=== PATIENT | male | born 1950 | race Caucasian/White ===

== ENCOUNTER → 2017-11-12 13:28 | Outpatient (CLI) | payer OTHER, SELFPAY ==
--- NOTE | 2017-11-12 | DI.MRI.S_ITS ---
PROCEDURE: MR CERVICAL SPINE WO CON INDICATIONS: RADICULOPATHY AFFECTING UPPER RIGHT EXTREMITY TECHNIQUE: Noncontrast sagittal T1 spin echo and T2 fast spin echo, sagittal STIR, foraminal oblique sagittal T2 fast spin echo, and axial gradient echo or T2 fast spin echo through the cervical spine. COMPARISON: None. FINDINGS: Image quality: Excellent. Alignment and Curvature: There is normal bony alignment. Bone Marrow: Mild reactive endplate change is noted adjacent to the C3-C4, C4-C5, C5-C6, C6-C7 and C7-T1 discs. Spinal Cord: Visualized spinal cord has normal size and signal. No cerebellar tonsillar herniation. Paraspinous Soft Tissues: No paravertebral masses. Prevertebral soft tissues are normal in thickness. C2-C3: Loss of disc signal. Mild, diffuse disc bulge. No central stenosis. No neural foraminal narrowing. No neural impingement. C3-C4: Loss of disc signal and height. Mild, diffuse disc bulge. Mild bilateral facet hypertrophy. Mild narrowing of the central canal. Severe bilateral neural foraminal narrowing with flattening deformity of the exiting C4 nerve roots. C4-C5: Loss of disc signal and mild loss of disc height. Mild, diffuse disc bulge. Mild bilateral facet hypertrophy. No central stenosis. Mild bilateral uncovertebral joint hypertrophy. Severe bilateral neural foraminal narrowing with flattening deformity the exiting C5 nerve roots. C5-C6: Loss of disc signal and height. Moderate, diffuse disc bulge. [id number] narrowing of the central canal. Mild bilateral facet hypertrophy. Moderate bilateral uncovertebral joint hypertrophy. Severe bilateral neural foraminal narrowing with flattening deformity exiting C6 nerve roots. C6-C7: Loss of disc signal and height. Moderate, diffuse disc bulge. Mild narrowing of the central canal Mild bilateral facet hypertrophy. Mild right and moderate left uncovertebral joint hypertrophy. Severe bilateral neural foraminal narrowing with flattening deformity of the exiting C7 nerve root. Mild to moderate narrowing of the central canal. C7-T1: Loss of disc signal and height. Mild, diffuse disc bulge. Mild narrowing of the central canal. Moderate left facet hypertrophy. Severe left neural foraminal narrowing with flattening deformity exiting left C8 nerve root. IMPRESSION: 1. Multilevel degenerative disc disease. 2. Multilevel facet arthropathy and uncovertebral joint hypertrophy. 3. Mild to moderate C5-C6 central canal narrowing. Mild C3-C4, C6-C7 and C7-T1 central canal narrowing. 4. Severe bilateral C3-C4, C4-C5, C5-C6 and C6-C7 neural foraminal narrowing. Severe left C7-T1 neural foraminal narrowing. Dictated by: Kelly Trammell MD, PhD on 11/12/2017 at 17:43 Approved by: Kelly Trammell MD, PhD on 11/12/2017 at 17:49
== END ==
PROVIDERS: PCP Family Medicine; Visit Provider Orthopaedic Surgery
DX: M50.11 Cervical disc disorder with radiculopathy, high cervical region (principal); M47.22 Other spondylosis with radiculopathy, cervical region; M48.02 Spinal stenosis, cervical region
CPT/HCPCS: 72141

== ENCOUNTER 2020-06-29 20:26 | Observation (INO) | payer MEDICARE, SELFPAY ==
[2020-06-29] VITALS (10 sets, daily range): BP systolic 107–148; BP diastolic 63–82; PULSE 67–78; RESP 14–25; TEMP 36.3–37.1; O2SAT 93–99; BMI 27.4
--- NOTE | 2020-06-29 20:33 | DI.CT.S_ITS ---
PROCEDURE: CT HEAD/BRAIN WO CON INDICATIONS: resolved dbl vision, ataxia and slurred speech on/off x darling TECHNIQUE: Noncontrast 4.5 mm thick angled axial sections acquired from the foramen magnum to the vertex, with coronal and sagittal reformats. For radiation dose reduction, the following was used: automated exposure control, adjustment of mA and/or kV according to patient size. COMPARISON: None. FINDINGS: Image quality: Excellent. CSF spaces: Basal cisterns are patent. No extra-axial fluid collections. The ventricles are symmetric in size and shape. Brain: No intracranial bleeds or masses. There is cerebral volume loss for age, with resultant ventricular and sulcal prominence. There are periventricular and deep white matter chronic small vessel ischemic changes. There is intracranial internal carotid artery atherosclerosis. Skull and face: Calvarium and visualized facial bones appear intact, without suspicious lesions. Sinuses: Visualized sinuses demonstrate minimal scattered mucosal thickening predominantly in the ethmoid air cells. IMPRESSION: 1. No acute intracranial process. 2. Moderate atrophy and chronic microvascular ischemic changes. Dictated by: Maci Nichols M.D. on 06/29/2020 at 20:57 Approved by: Maci Nichols M.D. on 06/29/2020 at 20:57
[2020-06-29 20:46] LABS: Add Manual Diff / Slide Review NO; Basophils Absolute Auto 100 /uL (0-100); Eosinophils Absolute Auto 300 /uL (0-450); Eosinophils Percent Auto 3.3 % (2-4); Hematocrit 40.8 % (41-53); Hemoglobin 13.6 g/dL (13.5-17.5); Lymphocytes Absolute Auto 3200 /uL (1100-4500); Lymphocytes Percent Auto 41.7 % (25-40); Mean Corpuscular HGB Conc 33.3 % (30-36); Mean Corpuscular Volume 96.4 fL (80-100); Monocytes Absolute Auto 700 /uL (0-900); Monocytes Percent Auto 9.7 % (3-14); Neutrophils Absolute Auto 3400 /uL (1500-7000); Neutrophils Percent Auto 44.3 % (50-75); Platelet Count 193 X10^3/uL (150-400); Red Blood Cell Count 4.23 X10^6/uL (4.5-5.9); Red Cell Distribution Width 13.8 % (11.6-14.8); White Blood Cell Count 7.6 X10^3/uL (4.5-11.0)
[2020-06-29 20:56] LABS: INR 0.9 (0.9-1.3); Prothrombin Time 10.5 SECONDS (10.1-12.7)
[2020-06-29 20:58] LABS: PTT Partial Thromboplastin Tim 28 SECONDS (26.4-36.2)
[2020-06-29 21:04] LABS: Ethanol (ETOH) 257 mg/dL
[2020-06-29 21:05] LABS: Alanine Aminotransferase 64 IU/L (<50); Albumin 4.4 g/dL (3.5-5.0); Albumin Globulin Ratio 1.4 (1.0-2.8); Alkaline Phosphatase 62 U/L (38-126); Aspartate Aminotransferase 80 IU/L (17-59); BUN Creatinine Ratio 23.2 (6-22); Bilirubin Total 0.3 mg/dL (0.2-1.3); Blood Urea Nitrogen 22 mg/dL (9-20); Calcium 8.9 mg/dL (8.4-10.2); Carbon Dioxide 28 mmol/L (22-32); Chloride 106 mmol/L (98-107); Creatine Kinase 135 U/L (55-170); Estimated Glomerular Filt Rate > 60.0 mL/min (>60); Globulin 3.1 g/dL (1.7-4.1); Glucose 139 mg/dL (80-110); HEMOLYSIS < 15 (0-50); Potassium 4.3 mmol/L (3.4-5.1); Sodium 142 mmol/L (137-145); Total Protein 7.5 g/dL (6.3-8.2)
[2020-06-29] MEDS: SODIUM CHLORIDE 0.9% 1,000 ML 150 ML IV (21:07)
[2020-06-29 21:17] LABS: Troponin I < 0.012 ng/mL (0.01-0.034)
[2020-06-29 21:20] LABS: CKMB % Relative Index 0.9 % (1.5-5.0); Creatine Kinase MB 1.18 ng/mL (<2.37)
[2020-06-29 21:37] LABS: Bacteria Urine None Seen; RBC Urine None Seen (0-5/HPF); WBC Urine None Seen (0-5/HPF)
--- NOTE | 2020-06-29 21:38 | ED.NEUROSD ---
HPI - Neuro Symptoms/Deficit General Chief Complaint: Neuro Symptoms/Deficit Stated Complaint: DOUBLE VISION SLURRED SPEECH Time Seen by Provider: 06/29/20 20:35 Source: patient and family Mode of arrival: Ambulatory Limitations: no limitations History of Present Illness HPI Narrative: 70-year-old gentleman with no significant medical history in no recent provider visits presents with approximately 40 minutes of double vision. This is not associated with headache or other neurologic findings. He states that over the last 1-2 months he has noticed increased slurred speech and some minor gait instability. He had attributed this to hearing and hearing loss. On Anticoagulants: No Related Data Allergies Allergy/AdvReac Type Severity Reaction Status Date / Time No Known Drug Allergies Allergy Verified 06/29/20 20:37 Review of Systems Review of Systems Narrative: Pertinent positive and negative findings as per HPI Remainder of review of systems is otherwise unremarkable for Constitutional: Fevers, chills, weakness ENT: No sore throat, neck pain, ear pain CV: Chest pain, palpitations, dyspnea on exertion Respiratory: Cough, wheeze, dyspnea GI: Nausea, vomiting, diarrhea, change in bowel habits, black or bloody stools : Dysuria, hematuria, flank pain MS: Muscle weakness, numbness, joint swelling or warmth Skin: Rashes, nonhealing lesions Hematologic/Lymphatic On Anticoagulants: No Patient History Social History Smoking Status: Never smoker Smoking Status: Never smoker alcohol intake frequency: 3 or more drinks per day Substance Use Type: does not use Exam Narrative Exam Narrative: General: Healthy appearing, in no acute distress. Smells of alcohol, slightly slurred speech HEENT: Moist mucous membranes, normal sclera with reactive pupils, Neck: No JVD, supple Respiratory: Lungs are clear to auscultation, no wheezing no rales no rhonchi. Full and symmetrical air movement Cardiac: Regular rate and rhythm no murmurs no bruits Abdomen: Soft, nontender, good bowel tones, no flank pain Skin: Warm and dry, no rashes Neurologic: Slurred speech and mild gait abnormality no visual changes and NIH score is 1 due to the slurred speech which is not acute Extremities: No trauma, well perfused Psych: Cooperative, appropriate insight and affect Initial Vital Signs Initial Vital Signs: Vital Signs Temperature 97.4 F L 06/29/20 20:35 Pulse Rate 78 06/29/20 20:35 Respiratory Rate 14 06/29/20 20:35 Blood Pressure 148/82 H 06/29/20 20:35 Pulse Oximetry 99 06/29/20 20:35 Course Orders Ordered: ED Orders 06/29/20 20:15 Magnesium Stat 06/29/20 20:33 CT head/brain wo con Stat 06/29/20 20:34 EKG-12 Lead Stat 06/29/20 20:40 Complete Blood Count AUTO DIFF Stat Comprehensive Metabolic Panel Stat Ethanol (ETOH) Stat Partial Thromboplastin Time Stat Prothrombin Time INR Stat Troponin & CK Cardiac Panel Stat 06/29/20 20:55 COVID19 - ADMIT (RN TRANSITION swab/PCR) Stat 06/29/20 21:36 Urinalysis and Microscopic Stat Urine Drug Screen, Rapid Stat Sodium Chloride (Normal Saline 0.9%) 1,000 mls @ 150 mls/hr IV CONT PAM Last Admin: 06/29/20 21:07 Dose: 150 mls/hr Documented by: ANA Vital Signs Vital signs: Vital Signs - 8 hr 06/29/20 20:35 06/29/20 20:40 06/29/20 20:52 Temperature 97.4 F L Pulse Rate 78 73 70 Respiratory Rate 14 22 22 Blood Pressure 148/82 H 128/79 Pulse Oximetry 99 95 94 06/29/20 21:00 06/29/20 21:30 06/29/20 22:00 Temperature Pulse Rate 75 74 76 Respiratory Rate 25 H 20 19 Blood Pressure 122/75 112/63 127/69 Pulse Oximetry 94 93 94 06/29/20 22:30 Temperature Pulse Rate 72 Respiratory Rate 19 Blood Pressure 107/63 Pulse Oximetry 93 MDM - Neuro Symptoms/Deficit Medical Records Attestation: I reviewed the patient's medical records. Lab Data Attestation: I reviewed the patient's lab results. Result diagrams: 06/29/20 20:40 06/29/20 20:40 Labs: Lab Results 06/29/20 06/29/20 06/29/20 Range/Units 20:15 20:40 20:40 WBC 7.6 (4.5-11.0) X10^3/uL RBC 4.23 L (4.5-5.9) X10^6/uL Hgb 13.6 (13.5-17.5) g/dL Hct 40.8 L (41-53) % MCV 96.4 (80-100) fL MCH 32.0 (26-34) PG MCHC 33.3 (30-36) % RDW 13.8 (11.6-14.8) % Plt Count 193 (150-400) X10^3/uL Neut % (Auto) 44.3 L (50-75) % Lymph % (Auto) 41.7 H (25-40) % [place] % (Auto) 9.7 (3-14) % Eos % (Auto) 3.3 (2-4) % Baso % (Auto) 1.0 (0-2) % Neut # (Auto) 3400 (8505-6422) /uL Lymph # (Auto) 3200 (8347-2858) /uL [place] # (Auto) 700 (0-900) /uL Eos # (Auto) 300 (0-450) /uL Baso # (Auto) 100 (0-100) /uL PT (10.1-12.7) SECONDS INR (0.9-1.3) APTT (26.4-36.2) SECONDS Sodium 142 (137-145) mmol/L Potassium 4.3 (3.4-5.1) mmol/L Chloride 106 (98-107) mmol/L Carbon Dioxide 28 (22-32) mmol/L BUN 22 H (9-20) mg/dL Creatinine 0.95 (0.66-1.25) mg/dL Estimated GFR > 60.0 (>60) mL/min BUN/Creatinine Ratio 23.2 H (6-22) Glucose 139 H (80-110) mg/dL Calcium 8.9 (8.4-10.2) mg/dL Magnesium 2.0 (1.6-2.3) mg/dL Total Bilirubin 0.3 (0.2-1.3) mg/dL AST 80 H (17-59) IU/L ALT 64 H (<50) IU/L Alkaline Phosphatase 62 (38-126) U/L Total Creatine Kinase 135 (55-170) U/L CK-MB (CK-2) 1.18 (<2.37) ng/mL CK-MB (CK-2) Rel Index 0.9 L (1.5-5.0) % Troponin I < 0.012 (0.01-0.034) ng/mL Total Protein 7.5 (6.3-8.2) g/dL Albumin 4.4 (3.5-5.0) g/dL Globulin 3.1 (1.7-4.1) g/dL Albumin/Globulin Ratio 1.4 (1.0-2.8) Urine Color Urine Appearance Urine pH (4.5-8.0) Ur Specific [place] (1.000-1.035) Urine Protein (Negative) Urine Glucose (UA) (Negative) g/dL Urine Ketones (NEGATIVE) Urine Occult Blood (Negative) Urine Nitrate (Negative) Urine Bilirubin (NEGATIVE) Urine Urobilinogen (0.2) E.U./dL Ur Leukocyte Esterase (NEGATIVE) Urine RBC (0-5/HPF) Urine WBC (0-5/HPF) Urine Bacteria (None) Ur Culture Indicated? Micro UA Comment U Opiates 300ng/mL cut (Negative) Ur Oxycodone Screen (Negative) Urine Methadone Screen (Negative) Ur Barbiturates Screen (Negative) U Tricyclic Antidepress (Negative) Ur Phencyclidine Scrn (Negative) Ur Amphetamines Screen (Negative) U Methamphetamines Scrn (Negative) Ur MDMA Scrn (Ecstasy) (Negative) U Benzodiazepines Scrn (Negative) Urine Cocaine Screen (Negative) U Marijuana (THC) Screen (Negative) Ethyl Alcohol ( - 10) mg/dL SARS-CoV-2 (PCR) (Negative) 06/29/20 06/29/20 06/29/20 Range/Units 20:40 20:40 20:55 WBC (4.5-11.0) X10^3/uL RBC (4.5-5.9) X10^6/uL Hgb (13.5-17.5) g/dL Hct (41-53) % MCV (80-100) fL MCH (26-34) PG MCHC (30-36) % RDW (11.6-14.8) % Plt Count (150-400) X10^3/uL Neut % (Auto) (50-75) % Lymph % (Auto) (25-40) % [place] % (Auto) (3-14) % Eos % (Auto) (2-4) % Baso % (Auto) (0-2) % Neut # (Auto) (0819-5933) /uL Lymph # (Auto) (2582-7076) /uL [place] # (Auto) (0-900) /uL Eos # (Auto) (0-450) /uL Baso # (Auto) (0-100) /uL PT 10.5 (10.1-12.7) SECONDS INR 0.9 (0.9-1.3) APTT 28 (26.4-36.2) SECONDS Sodium (137-145) mmol/L Potassium (3.4-5.1) mmol/L Chloride (98-107) mmol/L Carbon Dioxide (22-32) mmol/L BUN (9-20) mg/dL Creatinine (0.66-1.25) mg/dL Estimated GFR (>60) mL/min BUN/Creatinine Ratio (6-22) Glucose (80-110) mg/dL Calcium (8.4-10.2) mg/dL Magnesium (1.6-2.3) mg/dL Total Bilirubin (0.2-1.3) mg/dL AST (17-59) IU/L ALT (<50) IU/L Alkaline Phosphatase (38-126) U/L Total Creatine Kinase (55-170) U/L CK-MB (CK-2) (<2.37) ng/mL CK-MB (CK-2) Rel Index (1.5-5.0) % Troponin I (0.01-0.034) ng/mL Total Protein (6.3-8.2) g/dL Albumin (3.5-5.0) g/dL Globulin (1.7-4.1) g/dL Albumin/Globulin Ratio (1.0-2.8) Urine Color Urine Appearance Urine pH (4.5-8.0) Ur Specific [place] (1.000-1.035) Urine Protein (Negative) Urine Glucose (UA) (Negative) g/dL Urine Ketones (NEGATIVE) Urine Occult Blood (Negative) Urine Nitrate (Negative) Urine Bilirubin (NEGATIVE) Urine Urobilinogen (0.2) E.U./dL Ur Leukocyte Esterase (NEGATIVE) Urine RBC (0-5/HPF) Urine WBC (0-5/HPF) Urine Bacteria (None) Ur Culture Indicated? Micro UA Comment U Opiates 300ng/mL cut (Negative) Ur Oxycodone Screen (Negative) Urine Methadone Screen (Negative) Ur Barbiturates Screen (Negative) U Tricyclic Antidepress (Negative) Ur Phencyclidine Scrn (Negative) Ur Amphetamines Screen (Negative) U Methamphetamines Scrn (Negative) Ur MDMA Scrn (Ecstasy) (Negative) U Benzodiazepines Scrn (Negative) Urine Cocaine Screen (Negative) U Marijuana (THC) Screen (Negative) Ethyl Alcohol 257 H ( - 10) mg/dL SARS-CoV-2 (PCR) Negative (Negative) 06/29/20 06/29/20 Range/Units 21:36 21:36 WBC (4.5-11.0) X10^3/uL RBC (4.5-5.9) X10^6/uL Hgb (13.5-17.5) g/dL Hct (41-53) % MCV (80-100) fL MCH (26-34) PG MCHC (30-36) % RDW (11.6-14.8) % Plt Count (150-400) X10^3/uL Neut % (Auto) (50-75) % Lymph % (Auto) (25-40) % [place] % (Auto) (3-14) % Eos % (Auto) (2-4) % Baso % (Auto) (0-2) % Neut # (Auto) (2766-5954) /uL Lymph # (Auto) (4597-5982) /uL [place] # (Auto) (0-900) /uL Eos # (Auto) (0-450) /uL Baso # (Auto) (0-100) /uL PT (10.1-12.7) SECONDS INR (0.9-1.3) APTT (26.4-36.2) SECONDS Sodium (137-145) mmol/L Potassium (3.4-5.1) mmol/L Chloride (98-107) mmol/L Carbon Dioxide (22-32) mmol/L BUN (9-20) mg/dL Creatinine (0.66-1.25) mg/dL Estimated GFR (>60) mL/min BUN/Creatinine Ratio (6-22) Glucose (80-110) mg/dL Calcium (8.4-10.2) mg/dL Magnesium (1.6-2.3) mg/dL Total Bilirubin (0.2-1.3) mg/dL AST (17-59) IU/L ALT (<50) IU/L Alkaline Phosphatase (38-126) U/L Total Creatine Kinase (55-170) U/L CK-MB (CK-2) (<2.37) ng/mL CK-MB (CK-2) Rel Index (1.5-5.0) % Troponin I (0.01-0.034) ng/mL Total Protein (6.3-8.2) g/dL Albumin (3.5-5.0) g/dL Globulin (1.7-4.1) g/dL Albumin/Globulin Ratio (1.0-2.8) Urine Color Yellow Urine Appearance Clear Urine pH 6.0 (4.5-8.0) Ur Specific [place] 1.020 (1.000-1.035) Urine Protein Negative (Negative) Urine Glucose (UA) Negative (Negative) g/dL Urine Ketones Negative (NEGATIVE) Urine Occult Blood Negative (Negative) Urine Nitrate Negative (Negative) Urine Bilirubin Negative (NEGATIVE) Urine Urobilinogen 0.2 (0.2) E.U./dL Ur Leukocyte Esterase Negative (NEGATIVE) Urine RBC None seen (0-5/HPF) Urine WBC None seen (0-5/HPF) Urine Bacteria None seen (None) Ur Culture Indicated? Cult not indicated Micro UA Comment Microscopic normal U Opiates 300ng/mL cut Negative (Negative) Ur Oxycodone Screen Negative (Negative) Urine Methadone Screen Negative (Negative) Ur Barbiturates Screen Negative (Negative) U Tricyclic Antidepress Negative (Negative) Ur Phencyclidine Scrn Negative (Negative) Ur Amphetamines Screen Negative (Negative) U Methamphetamines Scrn Negative (Negative) Ur MDMA Scrn (Ecstasy) Negative (Negative) U Benzodiazepines Scrn Negative (Negative) Urine Cocaine Screen Negative (Negative) U Marijuana (THC) Screen Negative (Negative) Ethyl Alcohol ( - 10) mg/dL SARS-CoV-2 (PCR) (Negative) Imaging Data CT scan - head: Radiologist's Impression: FINDINGS: Image quality: Excellent. CSF spaces: Basal cisterns are patent. No extra-axial fluid collections. The ventricles are symmetric in size and shape. Brain: No intracranial bleeds or masses. There is cerebral volume loss for age, with resultant ventricular and sulcal prominence. There are periventricular and deep white matter chronic small vessel ischemic changes. There is intracranial internal carotid artery atherosclerosis. Skull and face: Calvarium and visualized facial bones appear intact, without suspicious lesions. Sinuses: Visualized sinuses demonstrate minimal scattered mucosal thickening predominantly in the ethmoid air cells. IMPRESSION: 1. No acute intracranial process. 2. Moderate atrophy and chronic microvascular ischemic changes. Dictated by: Maci Nichols M.D. on 06/29/2020 at 20:57 ECG Data Attestation: I personally reviewed and interpreted this ECG as follows: Interpretation: Sinus rhythm at a rate of 74 Normal intervals, normal axis No acute ischemic changes MDM Narrative Medical decision making narrative: 70-year-old gentleman with a 40 minutes episode of double vision and couple of months of slurred speech and gait instability presents this evening with concurrent alcohol intoxication to make the picture even more confusing. CT scan is unremarkable labs are unremarkable. At this point my recommendation is to admit him to the hospitalist service for a TIA. MRI will help sort out the slurred speech and gait instability verses the acute alcohol intoxication question. After long discussion in with shared decision making patient and his agree. Care is reveiwed with Mr Vee, hospitalist STARLA and patient is accepted. Discharge Plan Departure Patient Disposition: Admitted as Observation Clinical Impression: Transient cerebral ischemia Qualifiers: Transient cerebral ischemia type: unspecified Qualified Code(s): G45.9 - Transient cerebral ischemic attack, unspecified Alcohol intoxication Qualifiers: Complication of substance-induced condition: uncomplicated Qualified Code(s): F10.920 - Alcohol use, unspecified with intoxication, uncomplicated
[2020-06-29 21:40] LABS: Appearance Urine UA CLEAR; Bilirubin Urine UA NEGATIVE (NEGATIVE); Color Urine UA YELLOW; Glucose Urine UA NEGATIVE (Negative); Ketones Urine UA NEGATIVE (NEGATIVE); Leukocyte Esterase Urine UA NEGATIVE (NEGATIVE); Nitrite Urine UA NEGATIVE (Negative); Occult Blood Urine UA NEGATIVE (Negative); Protein Urine UA NEGATIVE (Negative); Urobilinogen Urine UA 0.2 E.U./dL (0.2)
[2020-06-29 21:46] LABS: UR Morphine/Opiate cutoff 300 Negative (Negative); Ur Creatinine 20 (Normal); Urine Amphetamines Negative (Negative); Urine Barbiturates Negative (Negative); Urine Benzodiazepines Negative (Negative); Urine Cocaine Negative (Negative); Urine MDMA Negative (Negative); Urine Methadone Negative (Negative); Urine Methamphetamines Negative (Negative); Urine Oxycodone Negative (Negative); Urine Phencyclidine Negative (Negative); Urine Tetrahydrocannabinol Negative (Negative); Urine Tricyclic Antidepressant Negative (Negative); Urine pH 6 (Normal)
[2020-06-29 21:57] LABS: Culture Indicated Urine Cult Not Indicated; Urine Comments Microscopic Normal
[2020-06-29 22:00] LABS: COVID19 - ADMIT (NP swab/PCR) Negative (Negative)
--- NOTE | 2020-06-29 23:27 | P.HP_ITS ---
History of Present Illness History of Present Illness Date Patient Seen: 06/29/20 Time Patient Seen: 23:43 Chief complaint: DOUBLE VISION SLURRED SPEECH Narrative: Mr. Joaquín Hernandez S 70-year-old male patient with no reported past medical history no current medications who presents to the ER with complaints of diplopia of for 40 minutes prior to arrival. The patient's double vision started during dinner and continued while watching TV and resolved prior to arr ival to the ER. The patient is reported to have additional symptoms of mild ataxia and slurred speech which been present for over a month month. In regards to the slurred speech the patient reports that his slurring has been variable and worse with intoxication. She reports phonation is at baseline. The patient's reports that she gave her to 81 mg baby aspirin at home prior to leaving for the emergency department. He denies headache, nausea vomiting or dizziness. On ambulation from stretcher to the bed patient had no significant ataxia or disequilibrium. He did sustain a fall sustaining laceration above his left eye a couple months ago without loss of consciousness or complications. Patient denies complaints of fevers or chills, headaches or disequilibrium. He reports a history of postnasal drip producing an occasional cough. He dorsi history chronic neck pain and has a history to a cervical degenerative disc disease. The patient relates mild chest tightness that comes and goes indicating the precordial region without radiation and did not change with deep inspiration that he recalls. Reports no shortness of breath and leg office previously mention and no wheezing. He denies exertional dyspnea. Denies nausea vomiting, epigastric or abdominal pain. He reports occasional diarrhea but none currently. He has nocturia 2-4 times nightly. Upon arrival the ER the patient has temperature of 97.4?, heart rate of 78, blood pressure 148/82, respirations 14 saturating 98% on room air. A CT of the head is obtained which finds no acute intracranial processes, notes moderate atrophy with chronic microvascular ischemic changes. Twelve lead EKG feels sinus rhythm at a rate of 74 without ectopy or block, no ST or T-wave changes and no evidence of infarct. On laboratory analysis the patient has white count of 7.6, hemoglobin 13.6 hematocrit 40.8 with platelets 193. His coagulation studies are all within normal limits. His chemistries are unremarkable with a BUN 22 and creatinine 0.95 however does have a elevated nonfasting glucose 139. On liver functions he has a total bilirubin 0.3 with an AST of 80 and ALT 64 and alkaline phosphatase of 62. Total CK is 135 with CK-MB of 1.18 for an index of 0.9. His troponin is negative less than 0.012. His urinalysis negative and UDS is negative. ETOH is 275. COVID screening is negative. In the ER the patient has received normal saline 150 cc an hour. The patient is admitted to the medicine service for TIA. Patient History Medical History (Updated 06/30/20 @ 00:56 by STARLA Rodriguez) Alcohol abuse Degenerative disc disease, cervical Hepatic steatosis Psoriasis Surgical History (Updated 06/30/20 @ 00:56 by STARLA Rodriguez) No significant past surgical history Family & Social History Family History (Updated 06/30/20 @ 00:57 by STARLA Rodriguez) Father Medical history unknown Mother Stroke Brother Alcoholism Liver failure Safety & Behavioral: Feels Safe in Current Yes Environment Been Physically Hurt or No Threatened By a Person Tobacco & Substance use: Smoking Status Never smoker alcohol intake frequency 3 or more drinks per day Substance Use Type does not use Meds Home Medications and Allergies Allergies Allergy/AdvReac Type Severity Reaction Status Date / Time No Known Drug Allergies Allergy Verified 06/29/20 20:37 Review of Systems Review of Systems ROS: Yes All systems reviewed with the patient and are negative except as otherwise documented Exam Vital Signs (past 8 hours): - 06/29/20 20:35 06/29/20 20:40 06/29/20 20:52 Temperature 97.4 F L Pulse Rate 78 73 70 Respiratory Rate 14 22 22 Blood Pressure 148/82 H 128/79 Pulse Oximetry 99 95 94 06/29/20 21:00 06/29/20 21:30 06/29/20 22:00 Temperature Pulse Rate 75 74 76 Respiratory Rate 25 H 20 19 Blood Pressure 122/75 112/63 127/69 Pulse Oximetry 94 93 94 06/29/20 22:30 06/29/20 23:00 Temperature Pulse Rate 72 74 Respiratory Rate 19 21 Blood Pressure 107/63 115/69 Pulse Oximetry 93 93 Oxygen Delivery Method Room Air Narrative Exam Narrative: GENERAL APPEARANCE: well developed, well nourished, lying semi recumbent in bed alert responsive in no acute distress. HEENT: Normocephalic, PERRLA, conjunctiva clear, sclera is anicteric, EOMs intact, bilateral nystagmus, no sinus tenderness to percussion, no rhinorrhea, mucous membranes are moist and pink without lesions, de souza coating on the tongue, no uvular deviation. NECK/THYROID: neck supple, no JVD, no carotid bruit, no thyromegaly, trachea midline. LYMPH NODES: no cervical or supraclavicular lymphadenopathy. SKIN: [place], warm and dry, Psoriasis with excoriation left anterior lower leg, no other visible rashes or lesions. HEART: regular rate and rhythm, S1-S2, 1/6 systolic murmur, no rubs or gallops, brisk capillary refill, no edema LUNGS: clear to auscultation bilaterally, no coarseness crackles or wheezing, no cough present CHEST: Symmetrical movement, no accessory muscle use, good tidal volume, no chest pain on AP and lateral compression.. ABDOMEN: Soft, no distention, no abdominal tenderness, no guarding or peritoneal signs, no organomegaly, no flank or suprapubic tenderness, active bowel tones. BACK: Nontender, no back pain with straight leg raise. EXTREMITIES: moves all extremities, strength is 5/5 and symmetrical, no deformities or joint effusions. NEUROLOGIC: AAO x4, Left facial droop, slurred speech, Visual mccrary intact, sensation intact to light touch, reflexes 1+ bilateral upper lower extremities, hearing grossly normal to speech. PSYCH: Alert and briskly responsive, cooperative, appropriate with stable behavior Objective Labs Result Diagrams: 06/29/20 20:40 06/29/20 20:40 Labs: Laboratory Results - last 24 hr 06/29/20 06/29/20 06/29/20 20:15 20:40 20:40 WBC 7.6 RBC 4.23 L Hgb 13.6 Hct 40.8 L MCV 96.4 MCH 32.0 MCHC 33.3 RDW 13.8 Plt Count 193 Neut % (Auto) 44.3 L Lymph % (Auto) 41.7 H [place] % (Auto) 9.7 Eos % (Auto) 3.3 Baso % (Auto) 1.0 Neut # (Auto) 3400 Lymph # (Auto) 3200 [place] # (Auto) 700 Eos # (Auto) 300 Baso # (Auto) 100 PT INR APTT Sodium 142 Potassium 4.3 Chloride 106 Carbon Dioxide 28 BUN 22 H Creatinine 0.95 Estimated GFR > 60.0 BUN/Creatinine Ratio 23.2 H Glucose 139 H Calcium 8.9 Magnesium 2.0 Total Bilirubin 0.3 AST 80 H ALT 64 H Alkaline Phosphatase 62 Total Creatine Kinase 135 CK-MB (CK-2) 1.18 CK-MB (CK-2) Rel Index 0.9 L Troponin I < 0.012 Total Protein 7.5 Albumin 4.4 Globulin 3.1 Albumin/Globulin Ratio 1.4 Urine Color Urine Appearance Urine pH Ur Specific [place] Urine Protein Urine Glucose (UA) Urine Ketones Urine Occult Blood Urine Nitrate Urine Bilirubin Urine Urobilinogen Ur Leukocyte Esterase Urine RBC Urine WBC Urine Bacteria Ur Culture Indicated? Micro UA Comment U Opiates 300ng/mL cut Ur Oxycodone Screen Urine Methadone Screen Ur Barbiturates Screen U Tricyclic Antidepress Ur Phencyclidine Scrn Ur Amphetamines Screen U Methamphetamines Scrn Ur MDMA Scrn (Ecstasy) U Benzodiazepines Scrn Urine Cocaine Screen U Marijuana (THC) Screen Ethyl Alcohol SARS-CoV-2 (PCR) 06/29/20 06/29/20 06/29/20 20:40 20:40 20:55 WBC RBC Hgb Hct MCV MCH MCHC RDW Plt Count Neut % (Auto) Lymph % (Auto) [place] % (Auto) Eos % (Auto) Baso % (Auto) Neut # (Auto) Lymph # (Auto) [place] # (Auto) Eos # (Auto) Baso # (Auto) PT 10.5 INR 0.9 APTT 28 Sodium Potassium Chloride Carbon Dioxide BUN Creatinine Estimated GFR BUN/Creatinine Ratio Glucose Calcium Magnesium Total Bilirubin AST ALT Alkaline Phosphatase Total Creatine Kinase CK-MB (CK-2) CK-MB (CK-2) Rel Index Troponin I Total Protein Albumin Globulin Albumin/Globulin Ratio Urine Color Urine Appearance Urine pH Ur Specific [place] Urine Protein Urine Glucose (UA) Urine Ketones Urine Occult Blood Urine Nitrate Urine Bilirubin Urine Urobilinogen Ur Leukocyte Esterase Urine RBC Urine WBC Urine Bacteria Ur Culture Indicated? Micro UA Comment U Opiates 300ng/mL cut Ur Oxycodone Screen Urine Methadone Screen Ur Barbiturates Screen U Tricyclic Antidepress Ur Phencyclidine Scrn Ur Amphetamines Screen U Methamphetamines Scrn Ur MDMA Scrn (Ecstasy) U Benzodiazepines Scrn Urine Cocaine Screen U Marijuana (THC) Screen Ethyl Alcohol 257 H SARS-CoV-2 (PCR) Negative 06/29/20 06/29/20 21:36 21:36 WBC RBC Hgb Hct MCV MCH MCHC RDW Plt Count Neut % (Auto) Lymph % (Auto) [place] % (Auto) Eos % (Auto) Baso % (Auto) Neut # (Auto) Lymph # (Auto) [place] # (Auto) Eos # (Auto) Baso # (Auto) PT INR APTT Sodium Potassium Chloride Carbon Dioxide BUN Creatinine Estimated GFR BUN/Creatinine Ratio Glucose Calcium Magnesium Total Bilirubin AST ALT Alkaline Phosphatase Total Creatine Kinase CK-MB (CK-2) CK-MB (CK-2) Rel Index Troponin I Total Protein Albumin Globulin Albumin/Globulin Ratio Urine Color Yellow Urine Appearance Clear Urine pH 6.0 Ur Specific [place] 1.020 Urine Protein Negative Urine Glucose (UA) Negative Urine Ketones Negative Urine Occult Blood Negative Urine Nitrate Negative Urine Bilirubin Negative Urine Urobilinogen 0.2 Ur Leukocyte Esterase Negative Urine RBC None seen Urine WBC None seen Urine Bacteria None seen Ur Culture Indicated? Cult not indicated Micro UA Comment Microscopic normal U Opiates 300ng/mL cut Negative Ur Oxycodone Screen Negative Urine Methadone Screen Negative Ur Barbiturates Screen Negative U Tricyclic Antidepress Negative Ur Phencyclidine Scrn Negative Ur Amphetamines Screen Negative U Methamphetamines Scrn Negative Ur MDMA Scrn (Ecstasy) Negative U Benzodiazepines Scrn Negative Urine Cocaine Screen Negative U Marijuana (THC) Screen Negative Ethyl Alcohol SARS-CoV-2 (PCR) Assessment & Plan Assessment & Plan narrative: This is a 70-year-old male patient who presents to the ER with chief complaint of diplopia for 40 minutes. The patient has had associated symptoms of ataxia and slurred speech reportedly for 1 month. Complicating evaluation is the patient has an elevated alcohol level of 275. 1. Subacute CVA, acute TIA with transient diplopia that resolved prior to arrival, active. -the patient appears to have had a stroke with persistent left facial droop and slurring speech that waxes and wanes in association with alcohol consumption. -onset of diplopia was 40 minutes prior to arrival resolved Prior to arrival in the emergency department. The patient with family history with his mother having had stroke. His father's medical history is unknown. -alcohol level is 275, UDS is negative for other substance abuse. -ABCD 2 score is 4, NIH score is 2 for left facial asymmetry and slurred speech. -patient's administered 2 baby aspirin prior to presenting to the ER, ordered aspirin 81 mg daily -ordered atorvastatin 20 mg at bedtime. -ordered MRI stroke protocol in the morning. -echocardiogram in the morning and will monitor on telemetry. -will risk stratify with TSH, lipid panel and hemoglobin A1c. 2. Alcohol intoxication, acute, present on admission, active. -Neurological evaluation is impeded by elevated alcohol level however the patient appears to be functioning well at his current alcohol level of 275. The patient is evasive about the amount of alcohol consumed. -ordered thiamine 100 mg x 1 now, folic acid 1 mg x 1 now and multivitamin in the morning. -will continue IV hydration with normal saline 100 cc/hour. -gambling counsellor the patient to stop drinking alcohol. 3. Hepatic steatosis, chronic, stable. -most likely alcohol induced -AST at 80, ALT is 64 with a normal bilirubin. -patient presently does not have a primary care provider further evaluation workup can be pursued on an outpatient basis. 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 VTE prophylaxis: SCDs, enoxaparin IV fluid: Normal saline 100 cc an hour. Diet: Heart healthy. Code status: Full code, the patient designates his Jody to be his surrogate decision maker. The patient is admitted to the hospital due to the severity of symptoms for further evaluation of his symptoms and risk for complications or adverse events. The patient is admitted as observation with expected length of stay to be less than 2 midnights. COVID-19 COVID-19 status: Negative Result date/Date tested (Pos, Neg/Pending): 06/29/20 Scores GCS [place] coma scale eye opening: Spontaneous Yolanda coma scale verbal response: Orientated Yolanda coma scale motor response: Obey commands Yolanda coma scale total score: 15 ABCD2 Age >= 60 years: yes Initial BP. Either SBP >= 140 or DBP >= 90.: yes Clinical features of the TIA: speech disturbance without weakness Duration of symptoms: 10-59 minutes History of diabetes: no ABCD2 Score: 4 NIHSS Level of Conciousness: Alert, keenly responsive Ask month/age: Answers both questions correctly. Open/close eyes, close hand: Performs both tasks correctly Best gaze horizontal: Normal Visual mccrary: No visual loss Facial palsy: Minor paralysis, flattened nasolabial fold, asymmetry on smiling Left arm drift: No drift for full 10 sec Right arm drift: No drift for full 10 sec Left leg drift: No drift for full 5 sec Right leg drift: No drift for full 5 sec Limb ataxia: Absent Sensory on face/arms/legs: Normal, no sensory loss Best language: Mild to moderate, slurs some words Dysarthria: Normal Extinction or inattention: No abnormality Total NIH Stroke scale score: 2
--- NOTE | 2020-06-29 23:53 | DI.MRI.S_ITS ---
PROCEDURE: MR STROKE Pre- and post-contrast brain MRI, non-contrast brain MR angiogram, pre- and postcontrast neck MR angiogram INDICATIONS: Possible TIA, diplopia, ataxia, slurred speech TECHNIQUE: Brain: Noncontrast axial T1 spin echo, axial T2 fast spin echo, sagittal and axial FLAIR, coronal T2 fast spin echo, axial gradient echo, axial diffusion and ADC through the brain. After the administration of contrast, axial 3D VIBE of the cranial vasculature and brain. Brain MRA: Non-contrast 3-D time of flight MR angiogram, with multiple jzgvbuq-imidabvzu-cixlpmogss (MIP) reformats performed. Neck MRA: Axial and sagittal TruFISP through the neck. Coronal dynamic MR angiogram during administration of contrast in the arterial and venous phases, with 3-dimenstional aghlgnc-prfldwhea-urpiezltpp (MIP) reformats constructed from subtraction images. COMPARISON: [facility], CT, CT HEAD/BRAIN WO CON, 06/29/2020, 20:41. FINDINGS: Image quality: Excellent. BRAIN: CSF spaces: Ventricles are normal in size and shape. Basal cisterns are patent. No extra-axial fluid collections. Brain: No intracranial bleeds or mass effects. [place]-white matter interface is normal. Diffusion weighted images show no acute ischemic insults. Diffuse volume loss mild small vessel ischemic change. Brainstem appears normal. Normal intravascular flow voids are present. No abnormal intracranial enhancement. Skull and face: Calvarial marrow signal is normal. Orbits appear normal. Sinuses: Mild mucosal thickening involving bilateral maxillary sinuses and sphenoid sinus and ethmoids. Bilateral maxillary sinus mucous retention cysts. BRAIN MR ANGIOGRAM: Anterior circulation: Intracranial internal carotid arteries are normal in size and enhancement. The flow within the paired anterior cerebral arteries is normal and symmetric. The flow within the middle cerebral arteries is normal and symmetric. The anterior communicating artery is seen. No stenoses, occlusions, or aneurysms. Posterior circulation: The visualized portions of the vertebral arteries demonstrate normal caliber, and join to form a normal appearing basilar artery. The distal left vertebral artery is dominant. Distal right vertebral artery is somewhat The flow within the posterior cerebral arteries is normal and symmetric. No stenoses, occlusions, or aneurysms. NECK MR ANGIOGRAM: Carotids: Great vessels demonstrate a conventional anatomy as they arise from the aortic arch. The origins of the common carotid arteries appear patent. The calibers and courses of both common carotid arteries are normal. The bifurcation regions appear normal bilaterally. The internal carotid arteries demonstrate normal course and caliber. Posterior circulation: The origins of the vertebral arteries appear patent. More superior portions of both vertebral arteries demonstrate normal course and caliber, and join to form a normal appearing basilar artery. Left vertebral artery is dominant. Right vertebral artery is somewhat diminutive. Miscellaneous: Subclavian arteries appear patent. Pre-contrast images through the neck show no soft tissue abnormalities. IMPRESSION: BRAIN MRI: 1. Age-related volume loss and mild small vessel ischemic change. 2. Chronic sinus disease. 3. No evidence acute stroke, hemorrhage, or mass BRAIN MR ANGIOGRAM: No stenosis, occlusion, or aneurysm. NECK MR ANGIOGRAM: Unremarkable. Widely patent internal carotids. Dictated by: Dennis Taylor M.D. on 06/30/2020 at 7:40 Approved by: Dennis Taylor M.D. on 06/30/2020 at 7:47
--- NOTE | 2020-06-29 23:53 | DI.ECHO.S_ITS ---
[place] +---------+ Hospital +---------+ : : [address] [place] : : : : [id number] : : : : Phone: [phone] Echocardiogram Report + + :Name: BRAD GONZALEZ Study Date: 06/30/2020 Height: 70 in : :[facility] ReadingLocation: Weight: 196 lb : : Gender: Male BSA: 2.1 m2 : :: 1950 Age: 70 yrs BP: 143/78 mmHg: :Reason For Study: TIA/ Alcohol abuse : :Ordering Physician: Toni : :Hospitalist Performed By: Aishwarya Page : :Referring: ADELINA ESPINOSA : + + Interpretation Summary The patient was in normal sinus rhythm during the exam. The left ventricle is normal in size and wall thickness. The ejection fraction is estimated to be 60-65%. There is no obvious LV thrombus. The right ventricle is normal in size and function. No significant valvular pathology seen. The ascending aorta is mildly enlarged. Aortic arch was not well seen. Procedure: A two-dimensional transthoracic echocardiogram with color flow and Doppler was performed. The study quality was technically adequate. There is no prior echocardiogram noted for this patient. The patient was in normal sinus rhythm during the exam. Left Ventricle: The left ventricle is normal in size and wall thickness. There is no thrombus. A false chord is noted (normal variant). The ejection fraction is estimated to be 60-65%. There are no focal wall motion abnormalities. E/E' med: 7.4. Right Ventricle: The right ventricle is normal in size and function. Atria: The left atrium is moderately dilated. Right atrial size is normal. There is no Doppler evidence for an interatrial shunt. Mitral Valve: There is mild mitral annular calcification. There is no mitral regurgitation noted. Aortic Valve: The aortic valve is trileaflet. The aortic valve opens well. There is mild aortic valve sclerosis. There is no aortic valve stenosis. No aortic regurgitation is present. Tricuspid Valve: The tricuspid valve is normal in structure and function. There is trace tricuspid regurgitation. The right ventricular systolic pressure is estimated to be at least 32 mmHg based on an estimated right atrial pressure of 8 mm Hg. Pulmonic Valve: The pulmonic valve is not well visualized. Great Vessels: The aortic root is normal size. The ascending aorta is mildly enlarged. The pulmonary artery is not well visualized, but is probably normal size. The IVC is of normal diameter and collapses less than 50% with a sniff. This suggests a right atrial pressure of 8 mm Hg. Pericardium/ Pleura There is no pericardial effusion. There is no pleural effusion. MMode/2D Measurements & Calculations LVIDd: 5.4 cm LVOT diam: 2.2 cm LVIDs: 3.1 cm Ao root diam: 3.6 cm FS: 41.7 % asc Aorta Diam: 4.2 cm IVSd: 0.81 cm LVPWd: 0.82 cm LV lopez. diameter/BSA (cm/m^2): 2.6 LV sys. diameter/BSA (cm/m^2): 1.5 LA A2 area: 28.0 cm2 RA long axis: 5.1 cm LA A4 area: 23.1 cm2 RA area: 18.8 cm2 LA length (vol): 5.5 cm RA vol: 59.3 ml LA vol: 100.4 ml RA : 28.7 ml/m2 LA vol index: 48.5 ml/m2 IVC diam: 2.1 cm RVD1 (basal): 4.6 cm TAPSE: 2.2 cm Doppler Measurements & Calculations Ao V2 max: 193.7 cm/sec LVOT Max Vasquez: 107.0 cm/sec Ao V2 mean: 122.9 cm/sec LV V1 max P.6 mmHg Ao max P.0 mmHg LV V1 VTI: 20.7 cm Ao mean P.0 mmHg JABARI(I,D): 2.2 cm2 Ao V2 VTI: 34.9 cm JABARI(V,D): 2.1 cm2 sev ratio: 0.59 JABARI indexed to BSA (cm^2/m^2): 1.1 MV E max vasquez: 74.0 cm/sec TR max avsquez: 243.5 cm/sec Med Peak E' Vasquez: 10.1 cm/sec TR max P.7 mmHg E/E' med: 7.4 PA V2 max: 80.7 cm/sec Lat Peak E' Vasquez: 9.1 cm/sec PA V2 mean: 51.1 cm/sec E/E' lat: 8.1 PA mean P.2 mmHg E/e' average: 7.7 PA Accel Time: 0.07 sec MV dec time: 0.17 sec SV(LVOT): 78.3 ml Reading Physician:04:36 PM
[2020-06-30] VITALS (8 sets, daily range): BP systolic 135–158; BP diastolic 80–94; PULSE 75–81; RESP 14–20; TEMP 36.6–37.1; O2SAT 96–98
[2020-06-30] MEDS: FAMOTIDINE 20 MG TABLET PO ×2 (01:10→08:47)
[2020-06-30] MEDS: THIAMINE 100 MG TABLET PO (01:10)
[2020-06-30] MEDS: FOLIC ACID 1 MG TABLET PO (01:11)
[2020-06-30] MEDS: SODIUM CHLORIDE 0.9% 1,000 ML 100 ML IV ×2 (01:11→05:29)
[2020-06-30 05:10] LABS: Blood Urea Nitrogen 18 mg/dL (9-20); Calcium 8.1 mg/dL (8.4-10.2); Carbon Dioxide 28 mmol/L (22-32); Chloride 108 mmol/L (98-107); Cholesterol 202 mg/dL (140-199); Estimated Glomerular Filt Rate > 60.0 mL/min (>60); Glucose 91 mg/dL (80-110); HDL Cholesterol 86 mg/dL (40-60); HEMOLYSIS < 15 (0-50); LDL Cholesterol Calculated 108 mg/dL (<100); Sodium 139 mmol/L (137-145); Triglycerides 40 mg/dL (35-150)
[2020-06-30 05:19] LABS: Magnesium 1.8 mg/dL (1.6-2.3)
[2020-06-30] MEDS: ASPIRIN EC 81 MG TABLET PO (08:46)
[2020-06-30] MEDS: MULTIVITAMIN 1 TABLET 1 TAB PO (08:46)
[2020-06-30] MEDS: ENOXAPARIN 40 MG/0.4 ML SYRINGE SUBCUT (08:47)
--- NOTE | 2020-06-30 10:02 | CM.DANOTE ---
DCP: Case received, EMR reviewed and met with patient. Introduced self and role. Was able to obtain information from patient regarding his baseline activity status prior to hospitalization. DCP assessment completed with information currently available. Patient is a 70 year old male who admitted yesterday evening to the care of the hospitalist team. PCP: Used to have Dr. Foreman, but he retired. He is looking for medical provider. Payer: confirmed: [employer] [facility]. Patient came to the hospital via private vehicle secondary to having visual disturbances, as well as slurred speech. Patient is being evaluated for TIA. He had MRI, pending results. Patient also has history of alcohol abuse, level 275. Met with patient. He is pleasant, alert and oriented, sitting up in bed. He resides in [place] with his spouse, Jody. He recently retired from his job at [employer] for over 20 years. Discussed his alcohol use. Stated, he does drink hard alcohol, during the day as well. He did state that he drives, but not when drinking. He denies getting drunk and passing out. He mentioned that he started drinking more after he retired, having time on his hands, as well as the current COVID situation. Stated, this hospitalization is a wake up call, and I know that I have to stop. Patient's provider, Dr. Foreman, retired, and is looking for another physician. Will give him resources for [facility], since they are currently accepting new patients. Also, discussed treatments for alcohol use. Discussed with HIRAM Matamoros. Stated that [facility] does take walk ins, not just for drug abuse, but alcohol as well. Will bring resources to patient for this as well. P: DCP to continue to follow, and will bring resources. Dr. Ahn mentioned possible discharge today after MRI results. Patient will also be working with therapy team. Ne Colindres RN/Precision Machinist
[2020-06-30] MEDS: THIAMINE 500 MG in SODIUM CHLORIDE 0.9% 50 ML 220 ML IV (10:10)
[2020-06-30] MEDS: SODIUM CHLORIDE 0.9% FLUSH 10 ML IV (10:10)
--- NOTE | 2020-06-30 10:43 | OT.IP.EVAL ---
Past Medical History (Last Updated 06/30/20 @ 00:56 by STARLA Rodriguez) Alcohol abuse Degenerative disc disease, cervical Hepatic steatosis Psoriasis Surgical History (Last Updated 06/30/20 @ 00:56 by STARLA Rodriguez) No significant past surgical history Occupational Therapy Inpatient Evaluation/Re-Eval M1 PT/OT-IP Prior Functional Status Start: 06/30/20 10:22 Freq: NEEDED Status: Active Protocol: Document 06/30/20 10:23 [facility] (Rec: 06/30/20 10:43 [facility] [id number]) Medical Review Prior Functional Status Communication Independent Mobility and Gait Pt states completely independent and does not use any devices. Activities of Daily Living and IADL's Pt states completely independent with all ADL, IADL , yard work, and driving needs . Prior Functional Level (Other details) Pt states no longer climbs ladders but does projects in his garage and around the house. Social History Household Members spouse Living Arrangements House Number of Floors (Floors) Two Floors Number of Stairs To Enter/Railing? Split level house with 6 steps from the front with right rail going up to the front door. 8 steps up with right rail to the bedroom and kitchen level. Pt has 8 steps down to the bathroom he normally uses and family room with left rail going down. Home Environment Standard Height Toilet,Tub/ Shower Employment Status Retired M2 OT-IP Current Condition Start: 06/30/20 10:22 Freq: Status: Active Protocol: Document 06/30/20 10:23 [facility] (Rec: 06/30/20 10:43 [facility] [id number]) Occupational Therapy Current Condition Current Condition Evaluation Date 06/30/20 Treatment Diagnosis TIA with transient diploplia Diagnosis Onset Date 06/29/20 M3 OT- IP Subjective and Pain Start: 06/30/20 10:22 Freq: Status: Active Protocol: Document 06/30/20 10:23 [facility] (Rec: 06/30/20 10:43 [facility] [id number]) OT- Subjective Occupational Therapy Visit Type Type Initial Evaluation Visit Start Time 09:54 Visit Stop Time 10:20 Total Visit Minutes 26 Occupational Therapy Visit Comments Patient Comments Pt agreed to get up for OT eval but not wanting to shower at this time. Patient/Caregiver Goals To go home. OT Pain Assessment Pain When Pain Assessed At Rest Pain Present Pain Present Denied Pain M4 OT- IP ADL's Start: 06/30/20 10:22 Freq: Status: Active Protocol: Document 06/30/20 10:23 [facility] (Rec: 06/30/20 10:43 [facility] [id number]) OT [id number] Comments OT Self-Feeding Comments NOt at meal time. OT ADL-Grooming Comments OT Grooming Comments Pt states did prior. OT ADL-Dressing General Eval Lower Body Dressing Ability Independent Comments OT Dressing Comments Independently able to pardeep his shoes and socks while seated. OT ADL-Toileting Comments OT Toileting Comments Pt not having to use the toilet. OT ADL-Bathing Comments OT Bathing Comments Pt not wanting to shower at this time. M5 OT- IP IADL's Start: 06/30/20 10:22 Freq: Status: Active Protocol: Document 06/30/20 10:23 [facility] (Rec: 06/30/20 10:43 [facility] [id number]) OT-Instrumental Activities of Daily Living Home Safety Awareness Awareness of Need for Assistance at Home Good Awareness Ability to Problem Solve Emergency Able to Problem Solve Situations Home Safety Comments Pt just needing correction if putting out a fire to point the extinguisher at the base of the fire versus top. Medication Management Medication Management Comments Pt just takes vitamins. Money Management Money Management Comments Suggested that to provide supervision and assist as needed at this time. Meal Preparation Meal Preparation Comments Suggested that to provide supervision and assist as needed at this time. Scuba Dive Training Instructor Scuba Dive Training Instructor Comments Suggested that to provide supervision and assist as needed at this time. Driving Driving Concerns Identified Regarding Safety M6 OT- IP Functional Cognition Start: 06/30/20 10:22 Freq: Status: Active Protocol: Document 06/30/20 10:23 [facility] (Rec: 06/30/20 10:43 [facility] [id number]) Cognitive Factors Limiting Selfcare Function Cognitive Ability Level of Alertness Alert Patient Orientation Name,Age,Birthday,Month,Date, Year,Day of Week,Place, Situation Attention Span Ability Capable of Focused Attention, Capable of Sustained Attention Ability to Follow Commands Able to Follow One Step Commands Memory Description Working Impaired Problem Solving Ability Needs Assist to Identify Solutions Executive Function Ability Unable to Filter Distractions Cognitive Comments Cognitive Assessment Comments Pt scored 119 seconds on Teaberry making Part B which implies moderate impairments for visual attention, task switching, speed of processing , mental flexibility, and executive function. AT this time best for pt not to drive and let his drive. Normal score is 65 seconds and 85 seconds is normal but not perfect. Pt needing repeated vc for assessment and increased time to comprehend instructions at times. OT- Vision and Hearing OT- Hearing Assessment OT- Hearing Assessment Use of Hearing Aids OT- Vision Assessment Visual Acuity Glasses All The Time Occular Pursuits WFL Visual Convergence WFL Visual Parker WFL Diplopia Absent M7 OT- IP Mobility and Balance Start: 06/30/20 10:22 Freq: Status: Active Protocol: Document 06/30/20 10:23 [facility] (Rec: 06/30/20 10:43 [facility] [id number]) OT- Bed Mobility Assessment Rolling Level of Assistance Independent Supine to Sit Supine to Sit Assist Independent OT-Transfer Assessment Sit to and From Stand Sit to and from Stand Independent Transfers Transfer Ability Independent Technique Transfer Destination Bed,Chair Transfer Technique Stand Step Pivot Devices Transfer Assistive Devices None Comments Mobility Comments Pt independent for level surfaces in the room. OT- Balance Assessment Sitting Balance and Reactions Static Sitting Balance Ability Normal Dynamic Sitting Balance Ability Normal Standing Balance and Reactions Static Standing Balance Ability Normal M8 OT- IP Objective Assessments Start: 06/30/20 10:22 Freq: Status: Active Protocol: Document 06/30/20 10:23 [facility] (Rec: 06/30/20 10:43 [facility] [id number]) OT Gross Range of Motion Upper Extremity Range of Motion Assessment Within Functional Limits OT Strength Upper Extremity Strength Assessment Within Functional Limits OT- Coordination Assessment Upper Extremity Finger to Nose Test Within Functional Limits Comments Coordination Comments Pt able to pardeep/doff his watch with no deficits noted. OT-Muscle Tone Assessment Muscle Tone WNL Yes OT Sensation Assessment Comments Summary Comments Intact for all light touch, proprioception and kinesthesia . Edema Edema Absent M9 OT- IP Assessment and Plan Start: 06/30/20 10:22 Freq: Status: Active Protocol: Document 06/30/20 10:23 [facility] (Rec: 06/30/20 10:43 [facility] [id number]) OT Summary Assessment and Plan Potential Rehabilitation Potential Good Analytic Complexity at Evaluation Low Summary OT Impairments Functional Cognition, Functional Mobility,Bathing Progress Towards Goals Progressing Toward Goals Assessment Summary Pt low complexity and main barriers are steps, decreased higher level executive functions, and appears to be close to his baseline. Pt aware of therapist's suggestion not to drive at this time due to moderate impairments for executive functioning based on Teaberry Making B assessment. Pt to go home when medically stable and to assist. Goals Shower Transfer Goal Independent Days to Meet Goals 1 Frequency of Treatment Frequency Of Treatment Once a Day Treatment Plan OT Treatment Plan ADL Training,Functional Cognition Training,Functional Mobility,Patient/Family Education,Discharge Planning Other Treatment Recommendations and Next Shower if still here. Treatment Focus Discharge Recommendations OT Discharge Recommendations Home with Assistance Transportation Needs at Discharge Private Vehicle
--- NOTE | 2020-06-30 10:51 | PT.IIE ---
Surgical History (Last Updated 06/30/20 @ 00:56 by STARLA Rodriguez) No significant past surgical history Medical History (Last Updated 06/30/20 @ 00:56 by STARLA Rodriguez) Alcohol abuse Degenerative disc disease, cervical Hepatic steatosis Psoriasis Physical Therapy Inpatient Evaluation/Re-Eval M1 PT/OT-IP Prior Functional Status Start: 06/30/20 10:22 Freq: NEEDED Status: Active Protocol: Document 06/30/20 10:23 [facility] (Rec: 06/30/20 10:43 [facility] [id number]) Medical Review Prior Functional Status Communication Independent Mobility and Gait Pt states completely independent and does not us any devices. Activities of Daily Living and IADL's Pt states completely independent with all ADL, IADL , yard work, and driving needs . Prior Functional Level (Other details) Pt states no longer climbs ladders but does projects in his garage and around the house. Social History Household Members spouse Living Arrangements House Number of Floors (Floors) Two Floors Number of Stairs To Enter/Railing? Split level house with 6 steps from the front with right rail going up. 8 steps up with right rail to the bedroom and kitchen. Pt has 8 steps down to the bathroom he normally uses and family room with left rail going down. Home Environment Standard Height Toilet,Tub/ Shower Employment Status Retired M1 PT/OT-IP Prior Functional Status Start: 06/30/20 12:56 Freq: NEEDED Status: Active Protocol: Document 06/30/20 10:51 [facility] (Rec: 06/30/20 13:05 [facility] [id number]) Medical Review Prior Functional Status Communication able to make needs known Mobility and Gait pt stated that he is independent with all mobilities and ambulation without AD Social History Household Members spouse Living Arrangements House Number of Floors (Floors) Two Floors Number of Stairs To Enter/Railing? has 5 steps to enter with R rail ascending 7 steps R rail up to get to bedroom level 7 steps L rail down to get to family room area Home Environment Standard Height Toilet,Tub/ Shower Home Equipment Straight Cane Employment Status Retired M2 PT-IP Current Condition Start: 06/30/20 12:56 Freq: NEEDED Status: Active Protocol: Document 06/30/20 10:51 [facility] (Rec: 06/30/20 13:05 [facility] [id number]) Physical Therapy Current Condition Current Condition Evaluation Date 06/30/20 Treatment Diagnosis alcohol intoxication; R/O TIA; difficulty in walking Onset Date 06/29/20 M3 PT-IP Subjective Start: 06/30/20 12:56 Freq: NEEDED Status: Active Protocol: Document 06/30/20 10:51 [facility] (Rec: 06/30/20 13:05 [facility] [id number]) Subjective Physical Therapy Visit Type Type Initial Evaluation Visit Start Time 10:51 Visit Stop Time 11:06 Total Visit Minutes 15 Number of BOTTOM PRESSER Visits 0 Physical Therapy Visit Comments Patient Comments pt is agreeable to do PT Therapy Pain Assessment Pain Present Pain Present Denied Pain M4 PT-IP Mobility and Gait Start: 06/30/20 12:56 Freq: NEEDED Status: Active Protocol: Document 06/30/20 10:51 [facility] (Rec: 06/30/20 13:05 [facility] [id number]) PT-Bed Mobility Assessment Supine to Sit Supine to Sit Independent Sit to Supine Sit to Supine Independent Scooting Scooting to Edge of Bed Independent PT-Transfer Assessment Sit to and From Stand Sit to and from Stand Independent Equipment Transfer Assistive Device None,Gait Belt Orthotic/Prosthetic Devices or Brace: No Transfers Transfer Destination Bed,Chair Transfer Technique ambulated without AD Transfer Ability Level of Assist Independent Gait Assessment Gait Gait Assistance Required: Independent,Standby Assistance Distance (Feet) 150 Able to Maintain Weight Bearing Status Yes During Gait Assistive Devices Assistive Device None,Gait Belt Orthotic/Prosthetic Devices or Brace: No Gait Deviations General Gait Pattern Within Normal Limits Comments Gait Comments ambulated with supervision without AD ~ 150 ft. Stair Climbing Assessment Evaluation Level of Assist On Stairs Standby Assistance Devices Stair Climbing Assistive Devices Right Railing Technique/Endurance Stair Climbing Direction Ascend and Descend Stair Climbing Technique Step Over Step Number of Steps Climbed 3 Query Text: Stair Climbing Set # Repetitions (reps) 4 PT-Balance Assessment Sitting Balance and Reactions Static Sitting Balance Ability Normal Dynamic Sitting Balance Ability Normal Standing Balance and Reactions Static Standing Balance Ability Good Dynamic Standing Balance Ability Good Device Used without AD M5 PT-IP Objective Assessments Start: 06/30/20 12:56 Freq: NEEDED Status: Active Protocol: Document 06/30/20 10:51 [facility] (Rec: 06/30/20 13:05 [facility] [id number]) Orientation Orientation/Cognition Level of Alertness Alert Orientation Name,Place,Situation Language Function Ability Hard of Hearing Memory Description No Deficits Noted Gross Range of Motion Lower Extremity ROM Assessment Within Functional Limits Strength Lower Extremity Strength Assessment Within Functional Limits Sensation Assessment Sensation Gross Sensation WNL Muscle Tone Muscle Tone WNL Yes M6 PT-IP Treatment Start: 06/30/20 12:56 Freq: NEEDED Status: Active Protocol: Document 06/30/20 10:51 [facility] (Rec: 06/30/20 13:05 [facility] [id number]) Physical Therapy Treatment Education Education Provided Safety M7 PT-IP Assessment and Plan Start: 06/30/20 12:56 Freq: NEEDED Status: Active Protocol: Document 06/30/20 10:51 [facility] (Rec: 06/30/20 13:05 [facility] [id number]) PT Summary Assessment and Plan Potential Rehabilitation Potential Good Status of Condition at Evaluation Stable Summary Impairments Balance,Gait Progress Towards Goals Safe For Discharge Assessment Summary pt is mod I with bed mobility and transfers, ambulates without AD and requiring supervision for safety. able to complete stair climbing SBA using R rail ascending. PT eval completed and no further PT intervention indicated at this time. Frequency of Treatment Frequency Of Treatment Discharge Recommendations To Nursing Amount of Assist Needed Independent Discharge Recommendations PT Discharge Recommendations Home Transportation Needs at Discharge Private Vehicle
--- NOTE | 2020-06-30 12:22 | PC.NURSE ---
Patient is alert and oriented. VSS. Lung sounds are clear bilaterally. Patient has a CIWA of 4 for moderate tremor in hands. No other complaints or withdrawal symptoms present.
--- NOTE | 2020-06-30 17:17 | PM.DS.1 ---
History of Present Illness History of Present Illness Chief complaint: DOUBLE VISION SLURRED SPEECH Narrative: Mr. Joaquín Hernandez S 70-year-old male patient with no reported past medical history no current medications who presents to the ER with complaints of diplopia of for 40 minutes prior to arrival. The patient's double vision started during dinner and continued while watching TV and resolved prior to arrival to the ER. The patient is reported to have additional symptoms of mild ataxia and slurred speech which been present for over a month month. In regards to the slurred speech the patient reports that his slurring has been variable and worse with intoxication. She reports phonation is at baseline. The patient's reports that she gave her to 81 mg baby aspirin at home prior to leaving for the emergency department. He denies headache, nausea vomiting or dizziness. On ambulation from stretcher to the bed patient had no significant ataxia or disequilibrium. He did sustain a fall sustaining laceration above his left eye a couple months ago without loss of consciousness or complications. Patient denies complaints of fevers or chills, headaches or disequilibrium. He reports a history of postnasal drip producing an occasional cough. He dorsi history chronic neck pain and has a history to a cervical degenerative disc disease. The patient relates mild chest tightness that comes and goes indicating the precordial region without radiation and did not change with deep inspiration that he recalls. Reports no shortness of breath and leg office previously mention and no wheezing. He denies exertional dyspnea. Denies nausea vomiting, epigastric or abdominal pain. He reports occasional diarrhea but none currently. He has nocturia 2-4 times nightly. Upon arrival the ER the patient has temperature of 97.4?, heart rate of 78, blood pressure 148/82, respirations 14 saturating 98% on room air. A CT of the head is obtained which finds no acute intracranial processes, notes moderate atrophy with chronic microvascular ischemic changes. Twelve lead EKG feels sinus rhythm at a rate of 74 without ectopy or block, no ST or T-wave changes and no evidence of infarct. On laboratory analysis the patient has white count of 7.6, hemoglobin 13.6 hematocrit 40.8 with platelets 193. His coagulation studies are all within normal limits. His chemistries are unremarkable with a BUN 22 and creatinine 0.95 however does have a elevated nonfasting glucose 139. On liver functions he has a total bilirubin 0.3 with an AST of 80 and ALT 64 and alkaline phosphatase of 62. Total CK is 135 with CK-MB of 1.18 for an index of 0.9. His troponin is negative less than 0.012. His urinalysis negative and UDS is negative. ETOH is 275. COVID screening is negative. In the ER the patient has received normal saline 150 cc an hour. The patient is admitted to the medicine service for TIA. Discharge Providers Provider Date of admission: 06/29/20 23:03 Discharge Date: 06/30/20 Primary care physician: Jovani Foreman MD Consults: 06/29/20 23:53 Consult to Dietitian, Adult Routine Comment: Reason For Exam: Alcohol abuse Consult to Discharge Planning Routine Comment: Consult to Occupational Therapy Evaluate & Treat Comment: Physician Instructions: Evaluate and treat Consult to Physical Therapy Evaluate & Treat Comment: Physician Instructions: Evaluate and Treat 06/30/20 01:28 Consult to PROFILING MACHINE SET UP OPERATOR - Manager Agency Routine Comment: CVA/TIA, Alcohol abuse, hepatic steatosis, no PCP PROFILING MACHINE SET UP OPERATOR Consult: [facility] Need Discharge provider: Steven Ahn MD Summary Hospital Course Discharge Diagnosis: 1. Possible Wernicke encephalopathy 2. Alcohol intoxication with alcohol dependency 3. Diplopia, resolved 4. Ataxia 5. Impairment of executive function MR stroke protocol: No acute or old stroke. No carotid artery narrowing. No areas of cerebral artery narrowing. ECHO: Normal LV and LVEF, normal RV, no significant valvular pathology, ascending aorta diameter 3.6 cm is borderline enlarged Physical therapy evaluation: No deficits noted with ambulation. Occupational therapy evaluation: Pt scored 119 seconds on [employer] making Part B which implies moderate impairments for visual attention, task switching, speed of processing , mental flexibility, and executive function. AT this time best for pt not to drive and let his drive. Normal score is 65 seconds and 85 seconds is normal but not perfect. Pt needing repeated vc for assessment and increased time to comprehend instructions at times. Patient was admitted due to reported diplopia, ataxia. He was noted to have nystagmus on initial exam. Initial concern was for TIA or stroke. His MRI, echo and telemetry are all unremarkable. Patient also had elevated blood alcohol level consistent with heavy daily chronic intake though alcohol level itself did not seem likely to explain his acute neurological findings. My concern was patient may be exhibiting early signs of Wernicke encephalopathy. He was provided IV thiamin including 500 mg on day of discharge. He is being sent home on oral thiamine 500 mg daily for 10 days then 100 mg daily for several weeks until he is sure symptoms have fully resolved. He is advised as to complete alcohol cessation and provided informational material for outpatient assistance to help quit drinking. Exam Vital Signs (past 8 hours): - 06/30/20 09:52 06/30/20 11:59 06/30/20 13:00 Temperature 98.2 F Pulse Rate 80 Respiratory Rate 20 Blood Pressure 146/94 H Pulse Oximetry 98 96 98 06/30/20 16:07 Temperature 98.8 F Pulse Rate 75 Respiratory Rate 17 Blood Pressure 158/94 H Pulse Oximetry 96 Oxygen Delivery Method Room Air Oxygen Flow Rate 0 Objective Labs Result Diagrams: 06/29/20 20:40 06/30/20 04:40 Labs: Laboratory Results - last 24 hr 06/29/20 06/29/20 06/29/20 20:15 20:40 20:40 WBC 7.6 RBC 4.23 L Hgb 13.6 Hct 40.8 L MCV 96.4 MCH 32.0 MCHC 33.3 RDW 13.8 Plt Count 193 Neut % (Auto) 44.3 L Lymph % (Auto) 41.7 H [place] % (Auto) 9.7 Eos % (Auto) 3.3 Baso % (Auto) 1.0 Neut # (Auto) 3400 Lymph # (Auto) 3200 [place] # (Auto) 700 Eos # (Auto) 300 Baso # (Auto) 100 PT INR APTT Sodium 142 Potassium 4.3 Chloride 106 Carbon Dioxide 28 BUN 22 H Creatinine 0.95 Estimated GFR > 60.0 BUN/Creatinine Ratio 23.2 H Glucose 139 H Hemoglobin A1c Calcium 8.9 Magnesium 2.0 Total Bilirubin 0.3 AST 80 H ALT 64 H Alkaline Phosphatase 62 Total Creatine Kinase 135 CK-MB (CK-2) 1.18 CK-MB (CK-2) Rel Index 0.9 L Troponin I < 0.012 Total Protein 7.5 Albumin 4.4 Globulin 3.1 Albumin/Globulin Ratio 1.4 Triglycerides Cholesterol LDL Cholesterol, Calc HDL Cholesterol Urine Color Urine Appearance Urine pH Ur Specific [place] Urine Protein Urine Glucose (UA) Urine Ketones Urine Occult Blood Urine Nitrate Urine Bilirubin Urine Urobilinogen Ur Leukocyte Esterase Urine RBC Urine WBC Urine Bacteria Ur Culture Indicated? Micro UA Comment U Opiates 300ng/mL cut Ur Oxycodone Screen Urine Methadone Screen Ur Barbiturates Screen U Tricyclic Antidepress Ur Phencyclidine Scrn Ur Amphetamines Screen U Methamphetamines Scrn Ur MDMA Scrn (Ecstasy) U Benzodiazepines Scrn Urine Cocaine Screen U Marijuana (THC) Screen Ethyl Alcohol SARS-CoV-2 (PCR) 06/29/20 06/29/20 06/29/20 20:40 20:40 20:40 WBC RBC Hgb Hct MCV MCH MCHC RDW Plt Count Neut % (Auto) Lymph % (Auto) [place] % (Auto) Eos % (Auto) Baso % (Auto) Neut # (Auto) Lymph # (Auto) [place] # (Auto) Eos # (Auto) Baso # (Auto) PT 10.5 INR 0.9 APTT 28 Sodium Potassium Chloride Carbon Dioxide BUN Creatinine Estimated GFR BUN/Creatinine Ratio Glucose Hemoglobin A1c 5.0 Calcium Magnesium Total Bilirubin AST ALT Alkaline Phosphatase Total Creatine Kinase CK-MB (CK-2) CK-MB (CK-2) Rel Index Troponin I Total Protein Albumin Globulin Albumin/Globulin Ratio Triglycerides Cholesterol LDL Cholesterol, Calc HDL Cholesterol Urine Color Urine Appearance Urine pH Ur Specific [place] Urine Protein Urine Glucose (UA) Urine Ketones Urine Occult Blood Urine Nitrate Urine Bilirubin Urine Urobilinogen Ur Leukocyte Esterase Urine RBC Urine WBC Urine Bacteria Ur Culture Indicated? Micro UA Comment U Opiates 300ng/mL cut Ur Oxycodone Screen Urine Methadone Screen Ur Barbiturates Screen U Tricyclic Antidepress Ur Phencyclidine Scrn Ur Amphetamines Screen U Methamphetamines Scrn Ur MDMA Scrn (Ecstasy) U Benzodiazepines Scrn Urine Cocaine Screen U Marijuana (THC) Screen Ethyl Alcohol 257 H SARS-CoV-2 (PCR) 06/29/20 06/29/20 06/29/20 20:55 21:36 21:36 WBC RBC Hgb Hct MCV MCH MCHC RDW Plt Count Neut % (Auto) Lymph % (Auto) [place] % (Auto) Eos % (Auto) Baso % (Auto) Neut # (Auto) Lymph # (Auto) [place] # (Auto) Eos # (Auto) Baso # (Auto) PT INR APTT Sodium Potassium Chloride Carbon Dioxide BUN Creatinine Estimated GFR BUN/Creatinine Ratio Glucose Hemoglobin A1c Calcium Magnesium Total Bilirubin AST ALT Alkaline Phosphatase Total Creatine Kinase CK-MB (CK-2) CK-MB (CK-2) Rel Index Troponin I Total Protein Albumin Globulin Albumin/Globulin Ratio Triglycerides Cholesterol LDL Cholesterol, Calc HDL Cholesterol Urine Color Yellow Urine Appearance Clear Urine pH 6.0 Ur Specific [place] 1.020 Urine Protein Negative Urine Glucose (UA) Negative Urine Ketones Negative Urine Occult Blood Negative Urine Nitrate Negative Urine Bilirubin Negative Urine Urobilinogen 0.2 Ur Leukocyte Esterase Negative Urine RBC None seen Urine WBC None seen Urine Bacteria None seen Ur Culture Indicated? Cult not indicated Micro UA Comment Microscopic normal U Opiates 300ng/mL cut Negative Ur Oxycodone Screen Negative Urine Methadone Screen Negative Ur Barbiturates Screen Negative U Tricyclic Antidepress Negative Ur Phencyclidine Scrn Negative Ur Amphetamines Screen Negative U Methamphetamines Scrn Negative Ur MDMA Scrn (Ecstasy) Negative U Benzodiazepines Scrn Negative Urine Cocaine Screen Negative U Marijuana (THC) Screen Negative Ethyl Alcohol SARS-CoV-2 (PCR) Negative 06/30/20 06/30/20 04:40 04:40 WBC RBC Hgb Hct MCV MCH MCHC RDW Plt Count Neut % (Auto) Lymph % (Auto) [place] % (Auto) Eos % (Auto) Baso % (Auto) Neut # (Auto) Lymph # (Auto) [place] # (Auto) Eos # (Auto) Baso # (Auto) PT INR APTT Sodium 139 Potassium 4.0 Chloride 108 H Carbon Dioxide 28 BUN 18 Creatinine 0.82 Estimated GFR > 60.0 BUN/Creatinine Ratio 22.0 Glucose 91 Hemoglobin A1c Calcium 8.1 L Magnesium 1.8 Total Bilirubin AST ALT Alkaline Phosphatase Total Creatine Kinase CK-MB (CK-2) CK-MB (CK-2) Rel Index Troponin I Total Protein Albumin Globulin Albumin/Globulin Ratio Triglycerides 40 Cholesterol 202 H LDL Cholesterol, Calc 108 H HDL Cholesterol 86 H Urine Color Urine Appearance Urine pH Ur Specific [place] Urine Protein Urine Glucose (UA) Urine Ketones Urine Occult Blood Urine Nitrate Urine Bilirubin Urine Urobilinogen Ur Leukocyte Esterase Urine RBC Urine WBC Urine Bacteria Ur Culture Indicated? Micro UA Comment U Opiates 300ng/mL cut Ur Oxycodone Screen Urine Methadone Screen Ur Barbiturates Screen U Tricyclic Antidepress Ur Phencyclidine Scrn Ur Amphetamines Screen U Methamphetamines Scrn Ur MDMA Scrn (Ecstasy) U Benzodiazepines Scrn Urine Cocaine Screen U Marijuana (THC) Screen Ethyl Alcohol SARS-CoV-2 (PCR) [facility] Medical History (Updated 06/30/20 @ 00:56 by STARLA Rodriguez) Alcohol abuse Degenerative disc disease, cervical Hepatic steatosis Psoriasis Surgical History (Updated 06/30/20 @ 00:56 by STARLA Rodriguez) No significant past surgical history Family History (Updated 06/30/20 @ 00:57 by STARLA Rodriguez) Father Medical history unknown Mother Stroke Brother Alcoholism Liver failure Social History household members: spouse Smoking Status: Never smoker alcohol intake: current Discharge Plan Discharge Plan Patient Disposition: Home Provider Discharge Comment: Take thiamine 500 mg daily for 10 days then continue on 100 mg a day for a few weeks until you are sure you not having any more symptoms. Quit drinking completely. Occupational therapist recommended not to drive at this time due to delays in visual processing. Discharge orders & Medications Prescriptions: New thiamine HCl (vitamin B1) 500 mg tablet 500 mg PO DAILY Qty: 10 RF: 0 Continued multivitamin Tablet 1 tab PO DAILY RF: 0 Follow up/Referrals: Martin Foreman MD [Primary Care Provider] - Discharge Health Status Multidrug resistant organism: No MDRO Diet/Activity/Treatments Diet: Regular Visit Report/Discharge Packet Instructions: DI for Prescription Opioid Use Discharge Data Primary Care Provider: Martin Foreman Attending Provider: Narcios Vee VTE Deep Vein Thrombosis/Pulmonary Embolism Present on Admission: No
--- NOTE | 2020-07-06 10:52 | PC.NURSE ---
Late Entry: Thiamine infusion initiated on 06/30 at 10:10, complete at 10:26.
== END 2020-06-30 18:00 | disposition home or self-care (01) ==
LOC: ED 23:02 → AC 23:04
PROVIDERS: Admitting Provider Nurse Practitioner Adult Health; Emergency Provider Emergency Medicine; PCP Family Medicine; Referring Provider Emergency Medicine; Visit Provider Nurse Practitioner Adult Health
DX: H53.2 Diplopia (principal); R47.81 Slurred speech; R27.0 Ataxia, unspecified; F10.229 Alcohol dependence with intoxication, unspecified; Y90.8 Blood alcohol level of 240 mg/100 ml or more; K76.0 Fatty (change of) liver, not elsewhere classified; M50.30 Other cervical disc degeneration, unspecified cervical region; Z20.822 Contact with and (suspected) exposure to COVID-19
CPT/HCPCS: 36415; 70450; 70548; 70553; 80048; 80053; 80061; 80305; 80320; 81001; 82550; 82553; 83036; 83735; 84484; 85025; 85610; 85730; 87635; 93005; 93306; 96360; 96361; 96372; 97161; 97165; 99284; G0378; A9270; A9579; J1650

== ENCOUNTER → 2022-02-04 10:58 | Outpatient (CLI) | payer MEDICARE, SELFPAY ==
[2020-06-29 23:55] VITALS: BMI 27.4
--- NOTE | 2022-02-04 11:01 | DI.MRI.S_ITS ---
PROCEDURE: MR BRAIN (IAC) WWO CON INDICATIONS: Sudden idiopathic hearing loss, right ear TECHNIQUE: Noncontrast sagittal T1 spin echo, axial FLAIR, axial gradient echo, axial diffusion and ADC through the brain. Axial thin-slice 3D CISS, coronal TruFISP, axial T1 spin echo with fat saturation through the internal auditory canals. After the administration of contrast, thin slice axial and coronal T1 spin echo with fat saturation through the internal auditory canals, and axial and coronal and sagittal T1 spin echo with fat saturation through the brain. COMPARISON: [facility], MR, MR STROKE, 06/30/2020, 7:19. [facility], CT, CT HEAD/BRAIN WO CON, 06/29/2020, 20:41. FINDINGS: Image quality: Excellent. Cerebellopontine angles: No cerebellopontine angle masses. Inner ear structures appear normally formed. No suspicious enhancement in the internal auditory canal or along the course of the 7th cranial nerve. CSF spaces: Ventricles are normal in size and shape. No extra-axial fluid collections. Basal cisterns are patent. Brain: No intracranial bleeds or mass effects. [place]-white matter interface is intact. No abnormal intracranial enhancement. Diffusion weighted images demonstrate no acute ischemic insults. Brainstem appears normal. Normal intravascular flow voids are present. Skull and face: Calvarial marrow signal is normal. Orbits appear normal. Sinuses: Mucous retention cysts are seen within the maxillary sinuses. Moderate mucosal thickening is seen within the maxillary sinuses. There is moderate mucosal thickening within the ethmoid air cells. There is mild mucosal thickening seen elsewhere within the paranasal sinuses. No abnormal fluid is seen within the mastoid air cells. IMPRESSION: No significant abnormality is seen. Specifically, no masses or abnormal enhancement are seen within the cerebellopontine angle cisterns or within the internal auditory canals. Note is made of paranasal sinus disease mucous retention cysts. Dictated by: Ricky Melgar M.D. on 02/04/2022 at 11:55 Approved by: Ricky Melgar M.D. on 02/04/2022 at 12:02
== END ==
PROVIDERS: PCP Physician Assistant Medical; Referring Provider Otolaryngology; Visit Provider Otolaryngology
DX: H91.21 Sudden idiopathic hearing loss, right ear (principal); J32.4 Chronic pansinusitis; J34.1 Cyst and mucocele of nose and nasal sinus
CPT/HCPCS: 70553

== ENCOUNTER 2024-06-08 10:14 | Emergency (ER) | payer MEDICARE, SELFPAY ==
[2020-06-29 23:55] VITALS: BMI 27.4
[2024-06-08] VITALS (8 sets, daily range): BP systolic 102–160; BP diastolic 56–81; PULSE 70–77; RESP 14–20; TEMP 36.1–36.9; O2SAT 92–99; BMI 25.7
--- NOTE | 2024-06-08 10:40 | DI.RAD.S_ITS ---
PROCEDURE: XR CHEST 1V INDICATIONS: chest pain TECHNIQUE: One view of the chest was acquired. COMPARISON: None. FINDINGS AND IMPRESSION: Low lung volumes. No airspace consolidation or pleural effusion on this single view study. There are aortic calcifications. Normal heart size. Degenerative osseous changes. Right AC interval is widened, which could be postsurgical Dictated by: Doc Caldera M.D. on 06/08/2024 at 11:34 Approved by: Doc Caldera M.D. on 06/08/2024 at 11:35
--- NOTE | 2024-06-08 10:42 | DI.CT.S_ITS ---
PROCEDURE: CT CERVICAL SPINE WO CON INDICATIONS: syncope/seizure TECHNIQUE: Noncontrast 3 mm thick sections acquired from the skull base to the T4 level. Sagittal and coronal reformats were then constructed. For radiation dose reduction, the following was used: automated exposure control, adjustment of mA and/or kV according to patient size. COMPARISON: Not available FINDINGS: Image quality: Diagnostic Bones: Moderate background degenerative changes with disc space height loss, osteophytes, facet arthropathy. No acute fracture. No traumatic subluxation. Soft tissues: Vascular calcifications. Prevertebral soft tissues are within normal limits. IMPRESSION: No displaced fracture or traumatic subluxation. Moderate spondylotic changes. If there is high concern for further derangement, consider MRI evaluation. Dictated by: oDc Caldera M.D. on 06/08/2024 at 11:32 Approved by: Doc Caldera M.D. on 06/08/2024 at 11:34
--- NOTE | 2024-06-08 10:42 | DI.CT.S_ITS ---
PROCEDURE: CT HEAD/BRAIN WO CON INDICATIONS: syncope/seizure TECHNIQUE: Noncontrast 4.5 mm thick angled axial sections acquired from the foramen magnum to the vertex, with coronal and sagittal reformats. For radiation dose reduction, the following was used: automated exposure control, adjustment of mA and/or kV according to patient size. COMPARISON: [facility], CT, CT HEAD/BRAIN WO CON, 06/29/2020, 20:41. FINDINGS: Image quality: Diagnostic CSF spaces: Basal cisterns are patent. Lateral ventricles are symmetric. Volume: Vascular calcifications. Periventricular white matter disease is commonly seen with chronic microangiopathy. Volume loss is present. These findings are [id number] Brain: No acute hemorrhage or gross loss of feliz-white differentiation Craniofacial structures: No displaced fracture. Sinuses are clear. Orbits are intact. IMPRESSION: No acute intracranial pathology. If there is high concern for parenchymal pathology, consider further evaluation with MRI. Dictated by: Doc Caldera M.D. on 06/08/2024 at 11:31 Approved by: Doc Caldera M.D. on 06/08/2024 at 11:32
--- NOTE | 2024-06-08 10:43 | EKG_ITS ---
[id number] [address] Test Date: 2024-06-08 Pat Name: Joaquín Hernandez Department: [facility] Room: Gender: Male Head Usher: EMILY : 1950 Requested By: Order Number: [id number] Reading MD: Thierry Esposito MD Measurements Intervals [place] Rate: 79 P: 51 [place]: 170 QRS: 52 QRSD: 98 T: 45 QT: 368 QTc: 421 Interpretive Statements Sinus rhythm with occasional premature ventricular complexes Electronically Signed On 06-09-2024 7:36:22 PST by Thierry Esposito MD
[2024-06-08 11:03] LABS: Add Manual Diff / Slide Review NO; Basophils Absolute Auto 0 /uL (0-100); Basophils Percent Auto 0.5 % (0-2); Eosinophils Absolute Auto 100 /uL (0-450); Eosinophils Percent Auto 1.8 % (2-4); Hematocrit 40.2 % (41-53); Hemoglobin 13.4 g/dL (13.5-17.5); Lymphocytes Absolute Auto 1300 /uL (1100-4500); Mean Corpuscular HGB Conc 33.2 % (30-36); Mean Corpuscular Hemoglobin 31.1 PG (26-34); Mean Corpuscular Volume 93.6 fL (80-100); Monocytes Absolute Auto 600 /uL (0-900); Monocytes Percent Auto 11.1 % (3-14); Neutrophils Absolute Auto 3500 /uL (1500-7000); Neutrophils Percent Auto 62.6 % (50-75); Platelet Count 226 X10^3/uL (150-400); Red Cell Distribution Width 13.6 % (11.6-14.8); White Blood Cell Count 5.6 X10^3/uL (4.5-11.0)
[2024-06-08 11:12] LABS: Alanine Aminotransferase 34 IU/L (<50); Albumin 4.5 g/dL (3.5-5.0); Albumin Globulin Ratio 1.5 (1.0-2.8); Alkaline Phosphatase 55 U/L (38-126); Aspartate Aminotransferase 36 IU/L (17-59); Bilirubin Total 0.5 mg/dL (0.2-1.3); Blood Urea Nitrogen 20 mg/dL (9-20); Calcium 9.1 mg/dL (8.4-10.2); Carbon Dioxide 24 mmol/L (22-32); Chloride 106 mmol/L (98-107); Creatine Kinase 151 U/L (55-170); Estimated Glomerular Filt Rate > 60 mL/min (>60); Glucose 106 mg/dL (80-110); HEMOLYSIS < 15 (0-50); Lipase 124 U/L (23-300); PTT Partial Thromboplastin Tim 31 SECONDS (25.1-36.5); Potassium 4.6 mmol/L (3.4-5.1); Sodium 138 mmol/L (137-145); Total Protein 7.5 g/dL (6.3-8.2)
--- NOTE | 2024-06-08 11:21 | ED_ITS ---
HPI - Syncope General Chief Complaint: Syncope Stated Complaint: Blacked out and fell Time Seen by Provider: 06/08/24 10:46 Mode of arrival: Ambulatory History of Present Illness HPI narrative: Patient here with . Blood sugar 93. Brought in by from home. Patient has syncopal episode around 8:00 a.m. this morning. He got up at 5:30 a.m. this morning without any difficulties. Patient was found on the floor around the stairwell. Did not fall down the stairs. Patient does not not recall any events of this will episode. Denies any prevent chest pain abdominal pain back pain headache dizziness palpitations numbness tingling or weakness. Patient at baseline according to . Patient regained consciousness and was responsive in less than 5 minutes according to . EMS did arrive but they declined EMS transfer. No prior history of syncopal episodes. No recent illness no nausea vomiting diarrhea black or bloody stools. No prior history of heart attack diabetes irregular heartbeat aneurysm pulmonary embolism. Medical records do show prior history of TIA. Denies any drug abuse or alcohol use last night or this morning. Patient did start Flomax 1 week ago takes it nightly Related Data Home Medications Medication Instructions Recorded Confirmed multivitamin 1 tab PO DAILY 06/30/20 06/30/20 Previous Rx's Medication Instructions Recorded thiamine HCl (vitamin B1) 500 mg 500 mg PO DAILY #10 tabs 06/30/20 tablet Allergies Allergy/AdvReac Type Severity Reaction Status Date / Time tamsulosin [From Flomax] Allergy Verified 06/08/24 10:36 Review of Systems Review of Systems Narrative: GENERAL: Negative chills, fatigue, malaise, fever, sweats. HEENT: Negative sinus pain, ear pain, sore throat RESPIRATORY: Negative dyspnea, cough CARDIOVASCULAR: Negative chest pain, palpitations, positive syncope GASTROINTESTINAL: Negative nausea, vomiting, abdominal pain : Negative dysuria, frequency, hematuria MUSCULOSKELETAL: Negative muscle or bony pain SKIN: Negative rash, skin lesions NEUROLOGIC: Negative weakness, numbness ROS Unobtainable: All systems reviewed & are unremarkable except as noted in HPI and below Patient History Medical History (Updated 06/08/24 @ 14:39 by Raulito Prakash MD) Psoriasis Alcohol abuse Hepatic steatosis Degenerative disc disease, cervical Surgical History (Updated 06/30/20 @ 00:56 by STARLA Rodriguez) No significant past surgical history Family History (Updated 06/30/20 @ 00:57 by STARLA Rodriguez) Father Medical history unknown Mother Stroke Brother Alcoholism Liver failure Social History household members: spouse Smoking Status: Never smoker alcohol intake: current Smoking Status: Never smoker alcohol intake frequency: 3 or more drinks per day Exam Narrative Exam Narrative: GENERAL: in no distress, not toxic not dyspneic HEAD: Normocephalic. Nontender face and scalp EYES: Pupils equal round ENT: Mucous membranes moist. NECK: Trachea midline. No midline tenderness or step-off of the cervical spine CARDIOVASCULAR: Regular rate and rhythm RESPIRATORY: Clear to auscultation. Breath sounds equal bilaterally. No wheezes, rales, or rhonchi. GASTROINTESTINAL: Abdomen soft, non-tender EXTREMITIES: No gross deformities. BACK: No flank tenderness. NEURO: AOx4. Clear speech, no facial droop light touch intact bilateral face hands and legs. 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 Negative pronator drift. Fast exam is negative SKIN: Warm and dry PSYCH: Not anxious, is cooperative Initial Vital Signs Initial Vital Signs: Vital Signs Temperature 97.0 F L 06/08/24 10:36 Pulse Rate 75 06/08/24 10:36 Respiratory Rate 14 06/08/24 10:36 Blood Pressure 102/56 L 06/08/24 10:36 Pulse Oximetry 92 06/08/24 10:36 Oxygen Delivery Method Room Air 06/08/24 10:36 Course Orders Ordered: ED Orders 06/08/24 10:40 XR chest 1V Stat EKG-12 Lead Stat 06/08/24 10:42 CT cervical spine wo con Stat CT head/brain wo con Stat 06/08/24 10:50 Complete Blood Count AUTO DIFF Stat Comprehensive Metabolic Panel Stat D Dimer Stat Lipase Stat Magnesium Stat NT-proBNP (BNP-Adult 18+) Stat PTT Partial Thromboplastin Osmar Stat Prothrombin Time INR Stat Troponin & CK Cardiac Panel Stat Vital Signs Vital signs: Vital Signs - 8 hr 06/08/24 10:36 06/08/24 12:44 06/08/24 12:46 Temperature 97.0 F L Pulse Rate 75 75 Respiratory Rate 14 Blood Pressure 102/56 L 142/71 H Pulse Oximetry 92 99 Oxygen Delivery Method Room Air 06/08/24 12:46 06/08/24 13:00 06/08/24 13:00 Temperature Pulse Rate 74 72 Respiratory Rate 19 20 Blood Pressure 148/76 H Pulse Oximetry 99 99 Oxygen Delivery Method MDM - Syncope Lab Data 06/08/24 10:50 06/08/24 10:50 Labs: Lab Results 06/08/24 Range/Units 10:50 WBC 5.6 (4.5-11.0) X10^3/uL RBC 4.30 L (4.5-5.9) X10^6/uL Hgb 13.4 L (13.5-17.5) g/dL Hct 40.2 L (41-53) % MCV 93.6 (80-100) fL MCH 31.1 (26-34) PG MCHC 33.2 (30-36) % RDW 13.6 (11.6-14.8) % Plt Count 226 (150-400) X10^3/uL Neut % (Auto) 62.6 (50-75) % Lymph % (Auto) 24.0 L (25-40) % [place] % (Auto) 11.1 (3-14) % Eos % (Auto) 1.8 L (2-4) % Baso % (Auto) 0.5 (0-2) % Neut # (Auto) 3500 (4966-2233) /uL Lymph # (Auto) 1300 (1928-5164) /uL [place] # (Auto) 600 (0-900) /uL Eos # (Auto) 100 (0-450) /uL Baso # (Auto) 0 (0-100) /uL PT 11.0 (9.4-12.5) SECONDS INR 1.0 (0.9-1.3) APTT 31 (25.1-36.5) SECONDS D-Dimer 418 (<500) ng/ml Sodium 138 (137-145) mmol/L Potassium 4.6 (3.4-5.1) mmol/L Chloride 106 (98-107) mmol/L Carbon Dioxide 24 (22-32) mmol/L BUN 20 (9-20) mg/dL Creatinine 1.00 (0.66-1.25) mg/dL Estimated GFR > 60 (>60) mL/min BUN/Creatinine Ratio 20.0 (6-22) Glucose 106 (80-110) mg/dL Calcium 9.1 (8.4-10.2) mg/dL Magnesium 2.0 (1.6-2.3) mg/dL Total Bilirubin 0.5 (0.2-1.3) mg/dL AST 36 (17-59) IU/L ALT 34 (<50) IU/L Alkaline Phosphatase 55 (38-126) U/L Total Creatine Kinase 151 (55-170) U/L Troponin I < 0.012 (0.01-0.034) ng/mL NT-Pro-B Natriuret Pep 119 (<125) pg/mL Total Protein 7.5 (6.3-8.2) g/dL Albumin 4.5 (3.5-5.0) g/dL Globulin 3.0 (1.7-4.1) g/dL Albumin/Globulin Ratio 1.5 (1.0-2.8) Lipase 124 (23-300) U/L Point of Care Testing Glucose POC 93 Urine Dip Bedside Urine Glucose Negative Bedside Urine Bilirubin - Negative Bedside Urine Ketone - Negative Urine Specific Stollings 1.015 Bedside Urine Occult Blood - Negative Bedside Urine pH 6.5 Bedside Urine Protein - Negative Bedside Urine Urobilinogen +/- 1mg Bedside Urine Nitrite - Negative Bedside Urine Leukocytes - Negative Esterase Imaging Data CT scan - head: Radiologist's Impression: [place] [address] CT Scan Report Signed Patient: Joaquín Hernandez MR#: [id number] : 1950 Acct:[id number] Age/Sex: 74 / M Date of Service: 06/08/24 Loc: ED Accession Number: [id number] Procedure: CT head/brain wo con Ordering Provider: Raulito Prakash MD PROCEDURE: CT HEAD/BRAIN WO CON INDICATIONS: syncope/seizure TECHNIQUE: Noncontrast 4.5 mm thick angled axial sections acquired from the foramen magnum to the vertex, with coronal and sagittal reformats. For radiation dose reduction, the following was used: automated exposure control, adjustment of mA and/or kV according to patient size. COMPARISON: [facility], CT, CT HEAD/BRAIN WO CON, 06/29/2020, 20:41. FINDINGS: Image quality: Diagnostic CSF spaces: Basal cisterns are patent. Lateral ventricles are symmetric. Volume: Vascular calcifications. Periventricular white matter disease is commonly seen with chronic microangiopathy. Volume loss is present. These findings are [id number] Brain: No acute hemorrhage or gross loss of feliz-white differentiation Craniofacial structures: No displaced fracture. Sinuses are clear. Orbits are intact. IMPRESSION: No acute intracranial pathology. If there is high concern for parenchymal pathology, consider further evaluation with MRI. Dictated by: Doc Caldera M.D. on 06/08/2024 at 11:31 Approved by: Doc Caldera M.D. on 06/08/2024 at 11:32 CT - cervical spine: Radiologist's Impression: [address] [address] [address] Scan Report Signed Patient: Joaquín Hernandez MR#: [id number] : 1950 Acct:[id number] Age/Sex: 74 / M Date of Service: 06/08/24 Loc: ED Accession Number: [id number] Procedure: CT cervical spine wo con Ordering Provider: Raulito Prakash MD PROCEDURE: CT CERVICAL SPINE WO CON INDICATIONS: syncope/seizure TECHNIQUE: Noncontrast 3 mm thick sections acquired from the skull base to the T4 level. Sagittal and coronal reformats were then constructed. For radiation dose reduction, the following was used: automated exposure control, adjustment of mA and/or kV according to patient size. COMPARISON: Not available FINDINGS: Image quality: Diagnostic Bones: Moderate background degenerative changes with disc space height loss, osteophytes, facet arthropathy. No acute fracture. No traumatic subluxation. Soft tissues: Vascular calcifications. Prevertebral soft tissues are within normal limits. IMPRESSION: No displaced fracture or traumatic subluxation. Moderate spondylotic changes. If there is high concern for further derangement, consider MRI evaluation. Dictated by: Doc Caldera M.D. on 06/08/2024 at 11:32 Approved by: Doc Caldera M.D. on 06/08/2024 at 11:34 Chest x-ray: Radiologist's Impression: [address] [address] XRay Report Signed Patient: Joaquín Hernandez MR#: [id number] : 1950 Acct:[id number] Age/Sex: 74 / M Date of Service: 06/08/24 Loc: ED Accession Number: [id number] Procedure: XR chest 1V Ordering Provider: Raulito Prakash MD PROCEDURE: XR CHEST 1V INDICATIONS: chest pain TECHNIQUE: One view of the chest was acquired. COMPARISON: None. FINDINGS AND IMPRESSION: Low lung volumes. No airspace consolidation or pleural effusion on this single view study. There are aortic calcifications. Normal heart size. Degenerative osseous changes. Right AC interval is widened, which could be postsurgical Dictated by: Doc Caldera M.D. on 06/08/2024 at 11:34 Approved by: Doc Caldera M.D. on 06/08/2024 at 11:35 [facility] Narrative Medical decision making narrative: Patient here with . Blood sugar 93. Brought in by from home. Patient has syncopal episode around 8:00 a.m. this morning. He got up at 5:30 a.m. this morning without any difficulties. Patient was found on the floor around the stairwell. Did not fall down the stairs. Patient does not not recall any events of this will episode. Denies any prevent chest pain abdominal pain back pain headache dizziness palpitations numbness tingling or weakness. Patient at baseline according to . Patient regained consciousness and was responsive in less than 5 minutes according to . EMS did arrive but they declined EMS transfer. No prior history of syncopal episodes. No recent illness no nausea vomiting diarrhea black or bloody stools. No prior history of heart attack diabetes irregular heartbeat aneurysm pulmonary embolism. Medical records do show prior history of TIA. Denies any drug abuse or alcohol use last night or this morning. Patient did start Flomax 1 week ago takes it nightly. After history and exam CT head CT cervical spine CBC CMP EKG troponin D-dimer [facility] Medical records reviewed: No recent visits for this complaint Differential considered: Includes but not limited to stroke seizure arrhythmia pulmonary embolism aortic dissection aortic aneurysm dehydration, Flomax side- effect Lab Test results independently reviewed as above. Pertinent findings: WBC 5.6 hemoglobin 13.4 INR 1.0 sodium 138 potassium 4.6 BUN 20 creatinine 1.0 GFR greater than 60 glucose 106 total CK 151 lipase 124 troponin less than 0.012 D- dimer 418 Independently reviewed EKG EKG rate [address] elevation or depression Imaging studies independently reviewed: CT head CT cervical spine chest x-ray no acute finding Consultations: None indicated at this time Treatments: None indicated this time Re-evaluations: 2:36 p.m.. Updated patient and results. This could be due to Flomax as new medication in the past week. Side effects due include hypotension and dizziness. Patient will stop take Flomax as he does not feel that it has been helping him and he does not want to risk passing out again. Again, patient never had any symptoms prior to syncope. Reviewed with them outpatient with primary care holter monitoring Zio patch echocardiogram to be done. Today's exam and laboratory studies imaging studies are reassuring. They desire discharge home. Discussion: Appropriate for discharge home exam is reassuring. Patient in no distress. Laboratory studies imaging studies are reassuring. No CT imaging indicated for chest and abdomen. D-dimer negative. Likely not aortic dissection pulmonary embolism. Symptoms likely due to Flomax. Return precautions reviewed. They desire discharge home Diagnosis: Syncope Discharge Plan Departure Patient Disposition: Home Clinical Impression: Syncope and collapse Instructions: DI for Syncope in Adults (Fainting) Activity Restrictions/Additional Instructions: Your exam and laboratory studies studies and imaging studies are reassuring. Please discontinue Flomax this week until you have seen your primary care for re-evaluation. Keep well hydrated. Return if worse if any questions or concerns. You will need to schedule outpatient Zio patch/Holter monitor and echocardiogram for you heart through your family doctor. Return if worse if any questions or concerns Prescriptions: No Action multivitamin Tablet 1 tab PO DAILY thiamine HCl (vitamin B1) 500 mg tablet 500 mg PO DAILY Qty: 10 0RF Referrals: Criselda Us PA-C [Primary Care Provider] - Stand Alone Forms: Patient Portal/API/Survey
[2024-06-08 11:24] LABS: NT-proBNP (BNP-Adult 18+) 119 pg/mL (<125); Troponin I < 0.012 ng/mL (0.01-0.034)
[2024-06-08 11:43] LABS: D Dimer 418 ng/ml (<500)
== END 2024-06-08 14:56 | disposition home or self-care (01) ==
PROVIDERS: Emergency Provider Emergency Medicine; PCP Physician Assistant Medical
DX: R55 Syncope and collapse (principal); R07.9 Chest pain, unspecified
CPT/HCPCS: 36415; 70450; 71045; 72125; 80053; 81003; 82550; 82962; 83690; 83735; 83880; 84484; 85025; 85379; 85610; 85730; 93005; 99283; 99284

== ENCOUNTER → 2024-06-16 14:57 | Outpatient (CLI) | payer MEDICARE, SELFPAY ==
[2020-06-29 23:55] VITALS: BMI 27.4
--- NOTE | 2024-06-16 14:58 | DI.ECHO.S_ITS ---
[facility]+ [facility] : : [address] : : [place] : : [address] : : Phone: [phone] Echocardiogram Report + + :Name: BRAD GONZALEZ Study Date: 06/16/2024 Height: 71 in : :[facility] ReadingLocation: Weight: 190 lb : : Gender: Male BSA: 2.1 m2 : :: 1950 Age: 74 yrs BP: 131/80 mmHg: :Reason For Study: SEIZURE, SYNCOPE : :Ordering Physician: BRIDGET, : :DIONNE Performed By: Zan Rowe : :Referring: UNSPECIFIED : + + Interpretation Summary 1. The left ventricular contractility is normal. Estimate ejection fraction is greater than 60% with no segmental wall motion abnormalities. No LVH. Normal diastolic function. 2. The right ventricular contractility is normal. 3. Biatrial enlargement with mild right ventricular enlargement. The left ventricular cavity is of normal size. 4. No significant valvular abnormalities. 5. No obvious intracardiac shunts. 6. No obvious intracardiac masses nor thrombi. 7. No hemodynamically significant pericardial effusion. 8. Normal right-sided filling pressures. 9. Mildly dilated ascending thoracic aorta without obvious dissection. Conclusion: Normal biventricular function with no significant valvular abnormalities. When compared with previous echocardiogram, there appears to be progression of cardiomegaly. Procedure: A two-dimensional transthoracic echocardiogram with color flow and Doppler was performed. The study quality was technically good. Comparison is made with the echocardiogram of 06/30/2020. The patient was in normal sinus rhythm during the exam. The patient had occasional PVCs during the exam. Left Ventricle: The left ventricle is normal in size. There is normal left ventricular wall thickness. There is no ventricular septal defect visualized. The ejection fraction is estimated to be 60-65%. There are no focal wall motion abnormalities. Diastolic parameters suggest probable normal left ventricular diastolic function and normal filling pressures. Right Ventricle: The right ventricle is mildly dilated. The right ventricular systolic function is normal. Atria: The left atrium is moderately dilated. The right atrium is moderately dilated. There is no Doppler evidence for an interatrial shunt. Mitral Valve: The mitral valve leaflets appear normal. There is no evidence of stenosis, fluttering, or prolapse. There is no mitral regurgitation noted. Aortic Valve: The aortic valve is trileaflet. The aortic valve opens well. No aortic regurgitation is present. Tricuspid Valve: The tricuspid valve leaflets are thin and pliable. There is trace tricuspid regurgitation. Doppler findings do not suggest pulmonary hypertension. Pulmonic Valve: The pulmonic valve leaflets are thin and pliable; valve motion is normal. There is trace pulmonic regurgitation. Great Vessels: The aortic root is normal size. The ascending aorta is mildly enlarged. The pulmonary artery is normal size. The IVC is dilated (diameter is greater than 2.1 cm) yet it collapses greater than 50% with a sniff. This suggests a right atrial pressure of 8 mm Hg. Pericardium/ Pleura There is no pericardial effusion. There is no pleural effusion. MMode/2D Measurements & Calculations LVIDd: 5.2 cm LVOT diam: 2.2 cm LVIDs: 3.6 cm Ao root diam: 3.3 cm FS: 31.6 % asc Aorta Diam: 4.0 cm EPSS: 0.58 cm IVSd: 1.1 cm LVPWd: 0.94 cm LV lopez. diameter/BSA (cm/m^2): 2.5 LV sys. diameter/BSA (cm/m^2): 1.7 LA A2 area: 27.3 cm2 RA long axis: 5.5 cm LA A4 area: 21.8 cm2 RA area: 22.4 cm2 LA length (vol): 6.6 cm RA vol: 77.7 ml LA vol: 76.8 ml RA : 37.7 ml/m2 LA vol index: 37.2 ml/m2 IVC diam: 2.3 cm RVD1 (basal): 4.3 cm RVD2 (mid): 3.0 cm TAPSE: 3.0 cm Doppler Measurements & Calculations Ao V2 max: 172.1 cm/sec LVOT Max Vasquez: 121.2 cm/sec Ao V2 mean: 125.0 cm/sec LV V1 max P.9 mmHg Ao max P.9 mmHg LV V1 VTI: 25.3 cm Ao mean P.0 mmHg JABARI(I,D): 2.5 cm2 Ao V2 VTI: 37.1 cm JABARI(V,D): 2.6 cm2 sev ratio: 0.68 JABARI indexed to BSA (cm^2/m^2): 1.2 MV E max vasquez: 97.0 cm/sec TR max vasquez: 289.3 cm/sec MV A max vasquez: 84.2 cm/sec TR max P.5 mmHg MV E/A: 1.2 PA V2 max: 98.1 cm/sec Med Peak E' Vasquez: 9.2 cm/sec PA V2 mean: 74.6 cm/sec E/E' med: 10.6 PA mean P.4 mmHg Lat Peak E' Vasquez: 9.6 cm/sec PA pr(Accel): 46.5 mmHg E/E' lat: 10.2 E/e' average: 10.4 MV dec time: 0.16 sec SV(LVOT): 93.7 ml Reading Physician:ELENI
--- NOTE | 2024-06-16 16:41 | DI.MRI.S_ITS ---
PROCEDURE: MR HEAD/BRAIN WO/W CON INDICATIONS: SEIZURE,NEW ONSET/SYNCOPE TECHNIQUE: Noncontrast axial T1 spin echo, axial T2 fast spin echo, sagittal and axial FLAIR, coronal T2 fast spin echo, axial gradient echo, axial diffusion and ADC through the brain. After the administration of contrast, axial and coronal and sagittal 3D VIBE or T1 spin echo with fat saturation through the brain. COMPARISON: None. FINDINGS: CSF Spaces: Basal cisterns are patent. No extra-axial fluid collections. Ventricles are normal in size and shape. Brain: No intracranial masses or hemorrhage. [place]/white matter interface is normal. Brainstem appears normal. Diffusion-weighted sequence is unremarkable without evidence of acute infarct. Normal intravascular flow voids are present. Both hippocampal formations show appropriate volume, morphology and signal characteristics. Sinuses: Maxillary sinus mucosal cysts 1.5 cm IMPRESSION: Age-appropriate atrophy and white matter chronic ischemic change without acute hemorrhage, infarct or mass lesion Approved by: Tin Aguiar M.D. on 06/17/2024 at 17:38
== END ==
PROVIDERS: PCP Family Medicine; Referring Provider Family Medicine; Visit Provider Family Medicine
DX: R55 Syncope and collapse (principal); R56.9 Unspecified convulsions; I77.89 Other specified disorders of arteries and arterioles; J34.1 Cyst and mucocele of nose and nasal sinus
CPT/HCPCS: 70553; 93306; A9579

== ENCOUNTER 2025-03-22 11:05 | Emergency (ER) | payer MEDICARE, SELFPAY ==
[2020-06-29 23:55] VITALS: BMI 27.4
[2025-03-22 11:30] VITALS: BP 108/58; PULSE 72; RESP 16; TEMP 36.5; O2SAT 99; BMI 25.7
--- NOTE | 2025-03-22 11:37 | DI.CT.S_ITS ---
PROCEDURE: CT ABDOMEN PELVIS W CON INDICATIONS: Left flank pain and difficulty urinating TECHNIQUE: After the administration of intravenous contrast, axial sections acquired from the lung bases to the pubic symphysis. Coronal and sagittal reformats were performed. For radiation dose reduction, the following was used: automated exposure control, adjustment of mA and/or kV according to patient size. COMPARISON: None. FINDINGS: Image quality: Diagnostic. Lower Chest: No significant findings. ABDOMEN: Liver: No solid mass. Gallbladder: No radiopaque gallstones or wall thickening. Biliary ducts: No biliary dilation. Pancreas: No ductal dilation. Spleen: Size is within normal limits. Adrenal Glands: No adrenal nodules. Kidneys and Ureters: No hydronephrosis. No solid mass. No complex renal cystic lesion which requires follow up. Mild bilateral urothelial enhancement could indicate ascending urinary tract infection. 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 Stomach and Bowel: Normal colonic caliber, without significant wall thickening. Peritoneum: No abnormal intraperitoneal fluid. No free air. Ventral Wall: No significant ventral hernia. Abdominal Nodes: No retroperitoneal or mesenteric adenopathy by size criteria. Vessels: Aorta and inferior vena cava are normal in size. PELVIS: Pelvic Organs: Unremarkable. Bladder: Bladder is decompressed by Nolen catheter. The bladder wall appears to be diffusely thickened, even in the setting of underdistention. Pelvic Nodes: No enlarged lymph nodes. Miscellaneous: No inguinal hernias are seen. Bones: No aggressive osseous abnormality. Multilevel degenerative changes in the spine. IMPRESSION: 1. Diffuse bladder wall thickening may indicate cystitis or chronic outlet obstruction common is accentuated by underdistention. 2. Mild bilateral urothelial hyperenhancement in the renal pelvises could indicate ascending urinary tract infection. Minimal left perinephric stranding. Approved by: Noel Giang M.D. on 03/22/2025 at 13:31
--- NOTE | 2025-03-22 11:56 | ED.MALEGU ---
HPI - Male Genitourinary General Chief complaint: Urogenital-Male Stated complaint: Having a hard urinating . 1 day Time Seen by Provider: 03/22/25 11:29 Source: patient Mode of arrival: Ambulatory History of Present Illness HPI Narrative: Mr. 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 Patient is here with his , states that he has been having difficulty urinating for many months. Yesterday he was started on Bactrim for UTI from a walk-in clinic. However last night he attempted to go to the bathroom multiple times and was only able to get out a few drops of urine. He is having left-sided abdominal pain with urinating but no pain at rest. Denies hematuria. He has intermittent diarrhea at baseline. No fevers, chills, chest pain, shortness of breath. He is unable to take Flomax. His urologist is Dr. Fontana in [place]. Related Data Home Medications ?Medication ?Instructions ?Recorded ?Confirmed multivitamin 1 tab PO DAILY 06/30/20 06/30/20 Previous Rx's ?Medication ?Instructions ?Recorded thiamine HCl (vitamin B1) 500 mg 500 mg PO DAILY #10 tabs 06/30/20 tablet Allergies Allergy/AdvReac Type Severity Reaction Status Date / Time tamsulosin (From Flomax) Allergy Severe Seizure Verified 03/22/25 11:35 Review of Systems Review of Systems ROS Unobtainable: All systems reviewed & are unremarkable except as noted in HPI and below Patient History Medical History Psoriasis Alcohol abuse Hepatic steatosis Degenerative disc disease, cervical Surgical History No significant past surgical history Family History Father Medical history unknown Mother Stroke Brother Alcoholism Liver failure Social History household members: spouse alcohol intake: current alcohol intake frequency: 3 or more drinks per day Exam Narrative Exam Narrative: GENERAL: 74 year old patient appears stated age. Well-developed patient, in no acute distress. HEAD: Atraumatic. Normocephalic. EYES: No scleral icterus. No injection or drainage. NECK: Trachea midline. Cervical ROM intact. CARDIOVASCULAR: Regular rate and rhythm. RESPIRATORY: ?Nonlabored respirations. ?Speaking in clear, full sentences. ?Clear to auscultation. Breath sounds equal bilaterally. No wheezes, rales, or rhonchi. ? GASTROINTESTINAL: Abdomen soft, non-tender. It is somewhat distended prior to Nolen catheter placement. Bowel sounds present. EXTREMITIES: No LE edema. BACK: No CVA tenderness BL. NEURO: AOx3. ?Clear speech. ?Moves all 4 extremities appropriately. SKIN: No rash or erythema of visible areas Initial Vital Signs Initial Vital Signs: Vital Signs Temperature 97.7 F 03/22/25 11:30 Pulse Rate 72 03/22/25 11:30 Respiratory Rate 16 03/22/25 11:30 Blood Pressure 108/58 L 03/22/25 11:30 Pulse Oximetry 99 03/22/25 11:30 Oxygen Delivery Method Room Air 03/22/25 11:30 Course Orders Ordered: ED Orders 03/22/25 11:37 CT abdomen pelvis w con Stat 03/22/25 11:55 Complete Blood Count AUTO DIFF Stat Comprehensive Metabolic Panel Stat Lipase Stat Discontinued Medications Lidocaine HCl (Lidocaine 2% (Glydo) 6 Ml Gel) 6 ml TOP NOW ONE Stop: 03/22/25 11:53 Last Admin: 03/22/25 12:00 Dose: 6 ml Documented By: [facility] Vital Signs Vital signs: Vital Signs - 8 hr 03/22/25 14:39 Pulse Rate 71 Respiratory Rate 18 Blood Pressure 137/78 Pulse Oximetry 98 Oxygen Delivery Method Room Air MDM - Male Genitourinary Medical Records Attestation: I reviewed the patient's medical records. Lab Data 03/22/25 11:55 03/22/25 11:55 Labs: Lab Results 03/22/25 Range/Units 11:55 WBC 8.8 (4.5-11.0) X10^3/uL RBC 3.92 L (4.5-5.9) X10^6/uL Hgb 12.1 L (13.5-17.5) g/dL Hct 35.9 L (41-53) % MCV 91.7 (80-100) fL MCH 30.9 (26-34) PG MCHC 33.8 (30-36) % RDW 13.3 (11.6-14.8) % Plt Count 162 (150-400) X10^3/uL Neut % (Auto) 70.5 (50-75) % Lymph % (Auto) 17.4 L (25-40) % [place] % (Auto) 11.3 (3-14) % Eos % (Auto) 0.5 L (2-4) % Baso % (Auto) 0.3 (0-2) % Neut # (Auto) 6200 (8703-8860) /uL Lymph # (Auto) 1500 (2711-1625) /uL [place] # (Auto) 1000 H (0-900) /uL Eos # (Auto) 0 (0-450) /uL Baso # (Auto) 0 (0-100) /uL Sodium 139 (137-145) mmol/L Potassium 4.4 (3.4-5.1) mmol/L Chloride 106 (98-107) mmol/L Carbon Dioxide 25 (22-32) mmol/L BUN 21 H (9-20) mg/dL Creatinine 1.12 (0.66-1.25) mg/dL Estimated GFR > 60 (>60) mL/min BUN/Creatinine Ratio 18.8 (6-22) Glucose 113 H (70-99) mg/dL Calcium 8.8 (8.4-10.2) mg/dL Total Bilirubin 0.9 (0.2-1.3) mg/dL AST 27 (17-59) IU/L ALT 21 (<50) IU/L Alkaline Phosphatase 52 (38-126) U/L Total Protein 7.3 (6.3-8.2) g/dL Albumin 4.4 (3.5-5.0) g/dL Globulin 2.9 (1.7-4.1) g/dL Albumin/Globulin Ratio 1.5 (1.0-2.8) Lipase 87 (23-300) U/L Urine Dip Bedside Urine Glucose Negative Bedside Urine Bilirubin - Negative Bedside Urine Ketone - Negative Urine Specific Brilli[place] 1.010 Bedside Urine Occult Blood - Negative Bedside Urine pH 6.5 Bedside Urine Protein - Negative Bedside Urine Urobilinogen - Negative Bedside Urine Nitrite - Negative Bedside Urine Leukocytes - Negative Esterase Imaging Data CT scan - abdomen/pelvis: Radiologist's Impression: PROCEDURE: CT ABDOMEN PELVIS W CON INDICATIONS: Left flank pain and difficulty urinating TECHNIQUE: After the administration of intravenous contrast, axial sections acquired from the lung bases to the pubic symphysis. Coronal and sagittal reformats were performed. For radiation dose reduction, the following was used: automated exposure control, adjustment of mA and/or kV according to patient size. COMPARISON: None. FINDINGS: Image quality: Diagnostic. Lower Chest: No significant findings. ABDOMEN: Liver: No solid mass. Gallbladder: No radiopaque gallstones or wall thickening. Biliary ducts: No biliary dilation. Pancreas: No ductal dilation. Spleen: Size is within normal limits. Adrenal Glands: No adrenal nodules. Kidneys and Ureters: No hydronephrosis. No solid mass. No complex renal cystic lesion which requires follow up. Mild bilateral urothelial enhancement could indicate ascending urinary tract infection. 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 Stomach and Bowel: Normal colonic caliber, without significant wall thickening. Peritoneum: No abnormal intraperitoneal fluid. No free air. Ventral Wall: No significant ventral hernia. Abdominal Nodes: No retroperitoneal or mesenteric adenopathy by size criteria. Vessels: Aorta and inferior vena cava are normal in size. PELVIS: Pelvic Organs: Unremarkable. Bladder: Bladder is decompressed by Nolen catheter. The bladder wall appears to be diffusely thickened, even in the setting of underdistention. Pelvic Nodes: No enlarged lymph nodes. Miscellaneous: No inguinal hernias are seen. Bones: No aggressive osseous abnormality. Multilevel degenerative changes in the spine. IMPRESSION: 1. Diffuse bladder wall thickening may indicate cystitis or chronic outlet obstruction common is accentuated by underdistention. 2. Mild bilateral urothelial hyperenhancement in the renal pelvises could indicate ascending urinary tract infection. Minimal left perinephric stranding. Approved by: Noel Giang M.D. 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 Differential diagnosis includes but is not limited to UTI, urinary retention, nephrolithiasis, ureterolithiasis, etc. On exam the patient is in no acute distress, nontoxic appearing, vital signs appropriate. His abdomen is nontender but it is somewhat distended. He was started on Bactrim yesterday for UTI. We will obtain baseline lab work, CT abdomen and pelvis. Postvoid bladder scan is revealing >1000mL residual urine. Nolen catheter was placed by nursing staff. Point of care urinalysis is entirely negative, patient was started on Bactrim yesterday however. Labs reveal normal WBC count 8.8, slightly decreased hemoglobin 12.1 hematocrit 35.9. Platelets 162. Sodium 139, potassium 4.4, BUN 21 creatinine 1.12. Glucose 113. Normal LFTs. Normal lipase 87. CT reveals diffuse bladder wall thickening may indicate cystitis or chronic outlet obstruction, and is accentuated by under distention. Mild bilateral ureteral feel hyper enhancement in the renal pelvis these can indicate ascending urinary tract infection. Nolen catheter placed, advised patient to complete course of Bactrim. He feels much better. He does have a urology appointment in [place] Apr.27, however I did advise he follow up sooner if possible. Discussed strict ER return precautions. Patient verbalized understanding of all information agreeable with the plan. He is ambulatory and stable for discharge home. Discharge Plan Departure Patient Disposition: Home Clinical Impression: Acute urinary retention, Acute UTI Instructions: DI for Urinary Retention in Men Activity Restrictions/Additional Instructions: Dear Jhonathan Hernandez, Thank you for coming to the emergency department. Today you were diagnosed with urinary retention, a catheter was placed to allow your bladder to drain. I would like you to complete the full course of previously prescribed antibiotics and keep the Nolen catheter in place. Please follow up with the urologist as soon as possible. Please return to the emergency department if you develop fevers, severe pain, blockage of your catheter or any other concerns. Please follow up with your primary care doctor within the next 2-3 days for ER follow-up. (If you do not have a PCP you can call [phone]. ?to schedule an appointment with an [facility] Primary Care Provider) IF YOU DEVELOP ANY NEW OR WORSENING SYMPTOMS, RETURN TO THE ER! Please read the attached instructions, they highlight more specific treatments and interventions for you at home. Thank you for letting me participate in your care, Jenni C. Judd, PA-C Prescriptions: No Action multivitamin Tablet 1 tab PO DAILY thiamine HCl (vitamin B1) 500 mg tablet 500 mg PO DAILY Qty: 10 0RF Referrals: Jeffrey Frias DO [Physician, Urology] Referral Note: urinary retention Ever Cerna MD [Primary Care Provider, Family Practice] Stand Alone Forms: Patient Portal/API
[2025-03-22] MEDS: LIDOCAINE 2% (GLYDO) 6 ML GEL TOP (12:00)
[2025-03-22 12:22] LABS: Add Manual Diff / Slide Review NO; Hematocrit 35.9 % (41-53); Hemoglobin 12.1 g/dL (13.5-17.5); Lymphocytes Absolute Auto 1500 /uL (1100-4500); Mean Corpuscular HGB Conc 33.8 % (30-36); Mean Corpuscular Hemoglobin 30.9 PG (26-34); Mean Corpuscular Volume 91.7 fL (80-100); Platelet Count 162 X10^3/uL (150-400)
[2025-03-22 12:32] LABS: Alanine Aminotransferase 21 IU/L (<50); Albumin 4.4 g/dL (3.5-5.0); Albumin Globulin Ratio 1.5 (1.0-2.8); Alkaline Phosphatase 52 U/L (38-126); Blood Urea Nitrogen 21 mg/dL (9-20); Calcium 8.8 mg/dL (8.4-10.2); Carbon Dioxide 25 mmol/L (22-32); Chloride 106 mmol/L (98-107); Estimated Glomerular Filt Rate > 60 mL/min (>60); Globulin 2.9 g/dL (1.7-4.1); Glucose 113 mg/dL (70-99); HEMOLYSIS < 15 (0-50); Lipase 87 U/L (23-300); Potassium 4.4 mmol/L (3.4-5.1); Sodium 139 mmol/L (137-145); Total Protein 7.3 g/dL (6.3-8.2)
--- NOTE | 2025-03-22 13:31 | PC.NURSE ---
Leg bag applied, patient and family taught how to change between large catheter bag and leg bag using clean technique.
[2025-03-22 14:39] VITALS: BP 137/78; PULSE 71; RESP 18; O2SAT 98
== END 2025-03-22 14:42 | disposition home or self-care (01) ==
PROVIDERS: Emergency Provider Physician Assistant; PCP Family Medicine
DX: N39.0 Urinary tract infection, site not specified (principal); R33.9 Retention of urine, unspecified
CPT/HCPCS: 36415; 51702; 51798; 74177; 80053; 81003; 83690; 85025; 99284; Q9967

== ENCOUNTER 2025-03-26 06:12 | Emergency (ER) | payer MEDICARE, SELFPAY ==
[2020-06-29 23:55] VITALS: BMI 27.4
[2025-03-26 06:25] VITALS: PULSE 67; O2SAT 98
[2025-03-26 06:26] VITALS: BP 98/53; PULSE 68; RESP 18; TEMP 36.8; O2SAT 95; BMI 27.3
[2025-03-26 06:30] VITALS: PULSE 67; O2SAT 96
--- NOTE | 2025-03-26 06:45 | PC.NURSE ---
Catheter not draining, flushed catheter and able to remove clot from catheter. catheter draining at this time.
--- NOTE | 2025-03-26 06:52 | ED.MALEGU ---
HPI - Male Genitourinary General Chief complaint: Urogenital-Male Stated complaint: Catheter Problem Time Seen by Provider: 03/26/25 06:17 Source: patient Mode of arrival: Ambulatory History of Present Illness HPI Narrative: 74-year-old male who was seen recently approximately 4 days ago here in the ED for acute urinary retention from a most likely enlarged prostate. He ended up needing a Nolen catheter placed. Today he presents here again for a catheter issue where there seems to be a plug or blockage preventing the flow of urine. No other symptoms. He has completed the Bactrim that was given to him at the walk-in clinic. UA at last visit here in the ED did not show an acute UTI picture. Related Data Home Medications ?Medication ?Instructions ?Recorded ?Confirmed multivitamin 1 tab PO DAILY 06/30/20 06/30/20 Previous Rx's ?Medication ?Instructions ?Recorded thiamine HCl (vitamin B1) 500 mg 500 mg PO DAILY #10 tabs 06/30/20 tablet Allergies Allergy/AdvReac Type Severity Reaction Status Date / Time tamsulosin (From Flomax) Allergy Severe Seizure Verified 03/26/25 06:26 Review of Systems Review of Systems ROS Unobtainable: All systems reviewed & are unremarkable except as noted in HPI and below Patient History Medical History Psoriasis Alcohol abuse Hepatic steatosis Degenerative disc disease, cervical Surgical History No significant past surgical history Family History Father Medical history unknown Mother Stroke Brother Alcoholism Liver failure Social History household members: spouse alcohol intake: current Smoking Status: Never smoker alcohol intake frequency: 3 or more drinks per day Exam Narrative Exam Narrative: General: Patient appears to be in no acute distress, acting appropriately Head: normocephalic, atraumatic, HEENT: Pupils equal round reactive, eyes tracking well, neck supple, no JVD Heart: regular rate and rhythm, no murmurs, rubs, or gallops heard Lungs: clear to auscultation, no adventitious sounds Abdomen: soft , nontender, nondistended, positive bowel sounds Neurological: no focal neurological signs, moving all extremities well, alert and oriented x3, Psych: good judgment ,good insight, mood is normal. Initial Vital Signs Initial Vital Signs: Vital Signs Temperature 98.2 F 03/26/25 06:26 Pulse Rate 68 03/26/25 06:26 Respiratory Rate 18 03/26/25 06:26 Blood Pressure 98/53 L 03/26/25 06:26 Pulse Oximetry 95 03/26/25 06:26 Oxygen Delivery Method Room Air 03/26/25 06:26 Course Orders Ordered: ED Orders 03/26/25 06:48 Consult to Urology Stat Vital Signs Vital signs: Vital Signs - 8 hr 03/26/25 06:26 Temperature 98.2 F Pulse Rate 68 Respiratory Rate 18 Blood Pressure 98/53 L Pulse Oximetry 95 Oxygen Delivery Method Room Air MDM - Male Genitourinary MDM Narrative Medical decision making narrative: 74-year-old male with an enlarged prostate and acute urinary retention presents with blockage in his catheter. Clot was irrigated and flushed out. 600 cc of urine was removed and catheter working well now. Advised to follow up with Urology as planned. Discharge Plan Departure Patient Disposition: Home Clinical Impression: Acute urinary retention Instructions: DI for Urinary Retention in Men Activity Restrictions/Additional Instructions: Try calling PCP in the a.m. again. Urology consult placed again Just in case. Follow up sooner if having issues with catheter again. Prescriptions: No Action multivitamin Tablet 1 tab PO DAILY thiamine HCl (vitamin B1) 500 mg tablet 500 mg PO DAILY Qty: 10 0RF Referrals: Jeffrey Frias DO [Physician, Urology] Ever Cerna MD [Primary Care Provider, Family Practice] Stand Alone Forms: Patient Portal/API
[2025-03-26 07:00] VITALS: PULSE 63; O2SAT 95
[2025-03-26 07:04] VITALS: PULSE 66; O2SAT 97
[2025-03-26 07:05] VITALS: BP 94/51
== END 2025-03-26 07:16 | disposition home or self-care (01) ==
PROVIDERS: Emergency Provider Family Medicine; PCP Family Medicine
DX: R33.8 Other retention of urine (principal); T83.091A Other mechanical complication of indwelling urethral catheter, initial encounter
CPT/HCPCS: 99281

== ENCOUNTER → 2025-04-05 10:17 | Outpatient (CLI) | payer MEDICARE, SELFPAY ==
[2025-03-28 12:58] VITALS: BMI 27.4
[2025-04-05 11:39] LABS: Prostate Specific Antigen 4.18 ng/mL (0.10-4.00)
== END ==
PROVIDERS: PCP Family Medicine; Referring Provider Urology; Visit Provider Urology
DX: R97.20 Elevated prostate specific antigen [PSA] (principal)
CPT/HCPCS: 36415; 84153

== ENCOUNTER 2025-04-14 16:45 | Emergency (ER) | payer MEDICARE, SELFPAY ==
[2025-03-28 12:58] VITALS: BMI 27.4
[2025-04-14] VITALS (11 sets, daily range): BP systolic 84–191; BP diastolic 51–100; PULSE 64–75; RESP 17–23; TEMP 37.1; O2SAT 97–99; BMI 25.0
--- NOTE | 2025-04-14 17:09 | EKG_ITS ---
[address] [address] Test Date: 2025-04-14 Pat Name: Joaquín Hernandez Department: [facility] Room: Gender: Male Warp Dyeing Vat Tender: AMEE : 1950 Requested By: Order Number: [id number] Reading MD: Steven Gardner Measurements Intervals [place] Rate: 69 P: 53 OK: 180 QRS: 66 QRSD: 102 T: 58 QT: 384 QTc: 411 Interpretive Statements Normal sinus rhythm Possible Left atrial enlargement Incomplete right bundle branch block Electronically Signed On 04-17-2025 10:19:01 PST by Steven Gardner
--- NOTE | 2025-04-14 17:09 | DI.RAD.S_ITS ---
PROCEDURE: XR CHEST 1V INDICATIONS: Chest Pain TECHNIQUE: One view of the chest was acquired. COMPARISON: Located Within [facility], CR, XR CHEST 1V, 06/08/2024, 10:51. FINDINGS: Surgical changes and devices: None. Lungs and pleura: Lungs are clear. No pleural effusions or pneumothorax. Mediastinum: Mediastinal contours appear normal. Heart size is normal. Bones and chest wall: No suspicious bony lesions. Overlying soft tissues appear unremarkable. IMPRESSION: No acute cardiopulmonary abnormality is seen. Dictated by: Duke Herman M.D. on 04/14/2025 at 17:43 Approved by: Duke Herman M.D. on 04/14/2025 at 17:43
[2025-04-14 17:49] LABS: INR 1.1 (0.9-1.3); Prothrombin Time 13.0 SECONDS (9.4-12.5)
[2025-04-14 17:51] LABS: Alanine Aminotransferase 22 IU/L (<50); Albumin 4.1 g/dL (3.5-5.0); Albumin Globulin Ratio 1.3 (1.0-2.8); Alkaline Phosphatase 59 U/L (38-126); Blood Urea Nitrogen 19 mg/dL (9-20); Calcium 9.1 mg/dL (8.4-10.2); Carbon Dioxide 26 mmol/L (22-32); Chloride 107 mmol/L (98-107); Creatine Kinase 122 U/L (55-170); Estimated Glomerular Filt Rate > 60 mL/min (>60); Globulin 3.2 g/dL (1.7-4.1); Glucose 109 mg/dL (70-99); HEMOLYSIS < 15 (0-50); Lipase 85 U/L (23-300); Magnesium 2.0 mg/dL (1.6-2.3); Potassium 4.6 mmol/L (3.4-5.1); Sodium 140 mmol/L (137-145); Total Protein 7.3 g/dL (6.3-8.2)
[2025-04-14 17:52] LABS: PTT Partial Thromboplastin Tim 29 SECONDS (25.1-36.5)
[2025-04-14 17:53] LABS: Add Manual Diff / Slide Review NO; Hematocrit 36.8 % (41-53); Hemoglobin 12.2 g/dL (13.5-17.5); Lymphocytes Absolute Auto 1900 /uL (1100-4500); Mean Corpuscular HGB Conc 33.3 % (30-36); Mean Corpuscular Hemoglobin 30.1 PG (26-34); Mean Corpuscular Volume 90.3 fL (80-100); Platelet Count 243 X10^3/uL (150-400)
[2025-04-14 18:03] LABS: NT-proBNP (BNP-Adult 18+) 185 pg/mL (<125); Troponin I < 0.012 ng/mL (0.01-0.034)
--- NOTE | 2025-04-14 20:17 | ED.GENADULT ---
HPI - General Adult General Chief complaint: Syncope Stated complaint: Sent by Phys; Passed out this morning Time Seen by Provider: 04/14/25 18:03 Source: patient Mode of arrival: Ambulatory History of Present Illness HPI narrative: 74-year-old gentleman who was taking levofloxacin in anticipation of water ablation prostatectomy coming up this next week. After taking the Levaquin he has had episodes of hypotension. Today he was sitting at the bedside they were changing his Nolen catheter, which is in place due to his enlarged prostate, when he began to feel somewhat dizzy. His was helping him to the stool when he had a syncopal episode falling forward into their fiberglass tub. There were no injuries. She is able to help him to the floor with return of consciousness and then eventually getting bed. No fevers, cough, chills, dyspnea, palpitations, headache, seizure-like activity Related Data Home Medications ?Medication ?Instructions ?Recorded ?Confirmed multivitamin 1 tab PO DAILY 06/30/20 04/11/25 Previous Rx's ?Medication ?Instructions ?Recorded thiamine HCl (vitamin B1) 500 mg 500 mg PO DAILY #10 tabs 06/30/20 tablet sulfamethoxazole 800 1 tab PO BID #14 tabs 04/14/25 mg-trimethoprim 160 mg tablet Allergies Allergy/AdvReac Type Severity Reaction Status Date / Time tamsulosin (From Flomax) Allergy Severe Seizure Verified 04/14/25 17:02 levofloxacin AdvReac Severe Fainting Verified 04/14/25 17:02 Review of Systems Review of Systems Narrative: Pertinent positive and negative findings as per HPI Patient History Medical History Seizure (2024) HLD (hyperlipidemia) Syncope Psoriasis Alcohol abuse Hepatic steatosis Degenerative disc disease, cervical Family History Father Evaluation of hearing impairment Mother Stroke Brother Alcoholism Liver failure Social History marital status: number of children: 3 household members: spouse Smoking Status: Never smoker alcohol intake: former caffeine: Yes Type(s) of exercise: regular exercise frequency: daily duration: 45-60 minutes/day Smoking Status: Never smoker alcohol intake frequency: 3 or more drinks per day Exam Initial Vital Signs Initial Vital Signs: Vital Signs Temperature 98.7 F 04/14/25 17:01 Pulse Rate 75 04/14/25 17:01 Respiratory Rate 18 04/14/25 17:01 Blood Pressure 84/51 L 04/14/25 17:01 Pulse Oximetry 99 04/14/25 17:01 Oxygen Delivery Method Room Air 04/14/25 17:01 General: Healthy appearing, in no acute distress. Able to give a complete and coherent history. Well-nourished well-developed HEENT: Moist mucous membranes, normal sclera with reactive pupils, Respiratory: Lungs are clear to auscultation, no wheezing no rales no rhonchi. Full and symmetrical air movement Cardiac: Regular rate and rhythm no murmurs no bruits Abdomen: Soft, nontender, no rebound or guarding, no flank pain Skin: Warm and dry, no rashes, no bruising Neurologic: Grossly neurologically intact with no obvious asymmetries or abnormalities Extremities: No trauma, well perfused Psych: Cooperative, appropriate insight and affect Course Orders Ordered: ED Orders 04/14/25 17:09 XR chest 1V Stat EKG-12 Lead Stat 04/14/25 17:30 Complete Blood Count AUTO DIFF Stat Comprehensive Metabolic Panel Stat Lipase Stat Magnesium Stat NT-proBNP (BNP-Adult 18+) Stat PTT Partial Thromboplastin Osmar Stat Prothrombin Time INR Stat Troponin & CK Cardiac Panel Stat Discontinued Medications Aspirin (Aspirin 81 Mg Chew Tab) 324 mg PO NOW ONE Stop: 04/14/25 17:10 Last Admin: 04/14/25 17:28 Dose: Not Given Documented By: CB Vital Signs Vital signs: Vital Signs - 8 hr 04/14/25 17:01 04/14/25 17:27 04/14/25 17:28 Temperature 98.7 F Pulse Rate 75 74 71 Respiratory Rate 18 Blood Pressure 84/51 L Pulse Oximetry 99 98 Oxygen Delivery Method Room Air 04/14/25 17:28 04/14/25 17:30 04/14/25 17:30 Temperature Pulse Rate 68 Respiratory Rate 18 Blood Pressure 144/74 H 142/80 H Pulse Oximetry 97 Oxygen Delivery Method 04/14/25 18:00 04/14/25 18:00 04/14/25 18:30 Temperature Pulse Rate 64 Respiratory Rate 23 Blood Pressure 153/89 H 159/88 H Pulse Oximetry 97 Oxygen Delivery Method 04/14/25 18:30 04/14/25 19:00 04/14/25 19:00 Temperature Pulse Rate 64 66 Respiratory Rate 22 17 Blood Pressure 182/94 H Pulse Oximetry 97 99 Oxygen Delivery Method 04/14/25 19:18 04/14/25 19:18 04/14/25 19:30 Temperature Pulse Rate 70 Respiratory Rate 17 Blood Pressure 183/90 H 183/100 H Pulse Oximetry 98 Oxygen Delivery Method 04/14/25 19:30 04/14/25 20:00 04/14/25 20:00 Temperature Pulse Rate 70 72 Respiratory Rate 19 20 Blood Pressure 191/95 H Pulse Oximetry 98 98 Oxygen Delivery Method 04/14/25 20:09 04/14/25 20:09 Temperature Pulse Rate 71 Respiratory Rate 20 Blood Pressure 188/91 H Pulse Oximetry 98 Oxygen Delivery Method Medical Decision Making Lab Data 04/14/25 17:30 04/14/25 17:30 Labs: Lab Results 04/14/25 Range/Units 17:30 WBC 7.1 (4.5-11.0) X10^3/uL RBC 4.07 L (4.5-5.9) X10^6/uL Hgb 12.2 L (13.5-17.5) g/dL Hct 36.8 L (41-53) % MCV 90.3 (80-100) fL MCH 30.1 (26-34) PG MCHC 33.3 (30-36) % RDW 13.3 (11.6-14.8) % Plt Count 243 (150-400) X10^3/uL Neut % (Auto) 61.7 (50-75) % Lymph % (Auto) 26.3 (25-40) % [place] % (Auto) 10.2 (3-14) % Eos % (Auto) 1.5 L (2-4) % Baso % (Auto) 0.3 (0-2) % Neut # (Auto) 4300 (2875-4336) /uL Lymph # (Auto) 1900 (9908-9705) /uL [place] # (Auto) 700 (0-900) /uL Eos # (Auto) 100 (0-450) /uL Baso # (Auto) 0 (0-100) /uL PT 13.0 H (9.4-12.5) SECONDS INR 1.1 (0.9-1.3) APTT 29 (25.1-36.5) SECONDS Sodium 140 (137-145) mmol/L Potassium 4.6 (3.4-5.1) mmol/L Chloride 107 (98-107) mmol/L Carbon Dioxide 26 (22-32) mmol/L BUN 19 (9-20) mg/dL Creatinine 1.17 (0.66-1.25) mg/dL Estimated GFR > 60 (>60) mL/min BUN/Creatinine Ratio 16.2 (6-22) Glucose 109 H (70-99) mg/dL Calcium 9.1 (8.4-10.2) mg/dL Magnesium 2.0 (1.6-2.3) mg/dL Total Bilirubin 0.4 (0.2-1.3) mg/dL AST 26 (17-59) IU/L ALT 22 (<50) IU/L Alkaline Phosphatase 59 (38-126) U/L Total Creatine Kinase 122 (55-170) U/L Troponin I < 0.012 (0.01-0.034) ng/mL NT-Pro-B Natriuret Pep 185 H (<125) pg/mL Total Protein 7.3 (6.3-8.2) g/dL Albumin 4.1 (3.5-5.0) g/dL Globulin 3.2 (1.7-4.1) g/dL Albumin/Globulin Ratio 1.3 (1.0-2.8) Lipase 85 (23-300) U/L MDM Narrative Medical decision making narrative: 74-year-old gentleman recently started on levofloxacin and his noticed dizziness after taking the medications. Today he had an episode significant enough that he actually had orthostatic hypotension with syncope as he was being aroused systolic blood pressure was 84. In the emergency department his workup was quite reassuring. There was no significant trauma appreciated, labs reassuring no evidence of kidney dysfunction electrolyte abnormalities acute coronary syndrome or infection. A throughout his emergency department stay his blood pressure is actually increased in at time of discharge was 188/91. We did discuss the hypertension. He does not have a diagnosis of hypertension. Did recommend that they get a blood pressure cuff and consider checking his blood pressures daily because if his blood pressure is this high at the time of his surgery his surgery will be delayed until blood pressure is better controlled. I suspect that his numbers are much more appropriate when he is at home, not waiting for extended periods of time and not in any pain. At this time there was no indication for further workup or hospitalization and he is safely discharged Discharge Plan Departure Patient Disposition: Home Clinical Impression: Orthostatic hypotension Adverse effects of medication Qualifiers: Encounter type: initial encounter Qualified Code(s): T50.905A - Adverse effect of unspecified drugs, medicaments and biological substances, initial encounter Activity Restrictions/Additional Instructions: Thank you for coming in and for waiting so long. Fortunately, your workup today was actually very reassuring. Your initial blood pressure was quite low which explains why you passed out. There was no sign of infection no sign of heart attack, your kidney function, your liver function, your red blood cells all look nice and normal. Your blood pressure has been up a bit while you been in the emergency department. I am going to suggest that you check this at least once a day at home. If it is up in the 176/91 range which it is right now the anesthesiologist might want to postpone your surgery next week. Reasonable blood pressures are going to be top 1. Forty or lower and bottom number 90 and lower Taking the levofloxacin seems like the reason that you had the low blood pressure so, police stop the levofloxacin If you find that you are getting worse or develop any new symptoms, please feel free to return to the emergency department for further evaluation. Prescriptions: No Action sulfamethoxazole-trimethoprim 800-160 mg tablet 1 tab PO BID Qty: 14 0RF multivitamin Tablet 1 tab PO DAILY thiamine HCl (vitamin B1) 500 mg tablet 500 mg PO DAILY Qty: 10 0RF Referrals: Ever Cerna MD [Primary Care Provider, Family Practice] Stand Alone Forms: Patient Portal/API
== END 2025-04-14 20:40 | disposition home or self-care (01) ==
PROVIDERS: Family Medicine; Emergency Provider Emergency Medicine; PCP Family Medicine
DX: I95.1 Orthostatic hypotension (principal); T36.8X5A Adverse effect of other systemic antibiotics, initial encounter; R42 Dizziness and giddiness
CPT/HCPCS: 36415; 71045; 80053; 82550; 83690; 83735; 83880; 84484; 85025; 85610; 85730; 93005; 99283; 99284

== ENCOUNTER 2025-04-18 06:19 | Day surgery (SDC) | payer MEDICARE, SELFPAY ==
[2025-03-28 12:58] VITALS: BMI 27.4
[2025-04-12 08:07] VITALS: BMI 24.4
--- NOTE | 2025-04-18 | PATH_ITS ---
[facility] Accession Number: [id number] No. of containers.. Tissue . 01 Material submitted: . prostate - PROSTATE CHIPS . 01 Diagnosis: PROSTATE CHIPS, TRANSURETHRAL PROSTATIC TISSUE RESECTION (TUPRT): Invasive prostatic adenocarcinoma, favor acinar-type, minute multiple foci, please see microscopic description. Total [place] score 7 (primary pattern 4, secondary pattern 3), involving 5 pieces out of 56 pieces examined, approximately 5% extent of involvement, please see microscopic description. 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 Negative for perineural invasion. Negative for lymphovascular invasion. Background nodular prostatic stromal hypertrophy also present. Grade group: 3 (4+3, pattern 4 60%). MRV 05/02/2025 1440 Local . 01 Comment: As part of ongoing water quality tester, selected slides (A2, A4 and A5) and associated immunohistochemistry have also been reviewed by Dr. Alicia York, who agrees with the interpretation. . Results were called to [facility] [place], by Dr. Pandya, on 05/01/2025 at 1:30 p.m. . 01 Electronically signed: . Emma Pandya MD, Pathologist NPI- [id number] . 01 Gross description: . Received in formalin with two patient identifiers, and prostate chips is a 5-gram, 4.0 x 3.0 x 1.0 cm aggregate of de souza-brown rubbery tissue fragments and clotted blood, entirely submitted in A1-A5. ([id number]) /MRV 04/25/2025 1144 Local . 01 Microscopic: . Microscopic examination of the entirely submitted prostatic tissue reveals extensive intraductal carcinoma of the prostate, involving prostatic urethral glands and extending into Von Brunn's nests. There are minute, multiple foci of invasive prostatic adenocarcinoma present, supported by immunohistochemistry. Given the extensive intraductal carcinoma of the prostate and to rule out the possibility of urothelial origin, and also support the multiple minute foci of invasive prostatic adenocarcinoma, immunostains are performed on blocks A1-A5 as follows: . PSA (blocks A1, A2, A3, A4, and A5) is positive, supporting prostatic origin and arguing against urothelial origin. . High molecular weight cytokeratin/p63 (performed on blocks A1, A2, A3, A4, and A5) supports the intraductal prostatic adenocarcinoma and minute foci of invasive prostatic adenocarcinoma. . AMACR immunostain (blocks A1, A2, A3, A4 and A5) is variably positive on the neoplastic prostatic glands. . SIM-3 and uroplakin (block A2) is negative on the neoplastic glands and is positive on the adjacent Von Brunn's nest and overlying urothelium. . CK7 (block A2) mirrors the pattern of staining of SIM-3 and uroplakin. . Negative SIM-3/uroplakin and CK7 (on the neoplastic glands) in conjunction with positive PSA and AMACR supports prostatic origin and argues urothelial origin of the neoplastic glands. . CK20 and CDX2 (block A2) is negative. This results also support the diagnosis and argues against colorectal origin. . In summary, the performed immunohistochemistry along with the morphology supports the diagnosis of minute multiple foci of invasive prostatic adenocarcinoma and argues against urothelial adenocarcinoma (and furthermore, colorectal origin). Invasive prostatic adenocarcinoma is present as minute multiple foci in three out of five slides (slides A3, A4, and A5) involving 5 pieces out of 56 pieces examined (approximately 5% extent of involvement). . In addition, intraductal carcinoma is present in all slides examined (A1-A5), extensive involvement. . * This test was developed and the performance characteristics were validated by [employer]. It has not been cleared or approved by the U.S. Food and Drug Administration. . 01 Pathologist provided ICD-10: N40.1, R33.9, C61 . 01 CPT . 649443, M93318, A82483, S28879 Specimen Comment: A courtesy copy of this report has been sent to [facility] Performed at: [address] [address], [place], [place] [id number] MD Johnny Gunn MD Phone: [phone]
[2025-04-18 07:13] VITALS: BP 113/65; PULSE 68; RESP 16; TEMP 36.3; O2SAT 98
[2025-04-18] MEDS: LACTATED RINGERS 1,000 ML 42 ML IV (07:20)
--- NOTE | 2025-04-18 07:33 | PM.PREOP ---
Pre-operative Note COVID-19 COVID-19 status: Not tested Interval Note History & Physical reviewed/Exam performed by Physician: Yes Changes to H&P: Yes H&P completed within 30 days and has changed as indicated here:: Over the last week, they have opted to move forward with an Aquablation procedure. Discussed the risks, benefits and alternatives in great detail and they are very interested in moving forward with surgery.
--- NOTE | 2025-04-18 08:14 | SUR.OPER ---
Lithotomy on padded OR bed, head on pillow, arms secured on padded arm boards at <90 degrees abduction. Legs secured in padded yellow fins stirrups.
--- NOTE | 2025-04-18 09:00 | PM.OP.1 ---
Operative Date/Time/Diagnoses Date of procedure: 04/18/25 Time of procedure: 08:00 Pre-op diagnosis: Benign prostatic hyperplasia with lower urinary tract symptoms Post-op diagnosis: same Procedure & Clinicians Procedure: Cystoscopy Aquablation Same procedure(s) as scheduled: Yes Indications: 74 y/o M noted to have symptoms consistent with BPH and LUTS as well as acute urinary retention in early Mar. Discussed treatment options to include observation vs a trial of alpha blockers. Discussed mechanism of action and expected side effects to include orthostatic hypotension, nasal congestion and retrograde ejaculation. Also discussed the possible addition of Finasteride 5mg daily (discussed possible side effects to include decreased libido, worsening erectile dysfunction, loss of ejaculate volume as well as painful breast development or nipple tenderness), or a lower urinary tract evaluation prior to a bladder outlet procedure. Discussed absolute indications for treatment either medically or surgically to include: urinary retention, development of large bladder stones, refractory gross hematuria, recurrent urinary tract infections and renal dysfunction. Discussed that his cystoscopy and TRUS prostate were notable for coaptating lateral prostatic lobes w/o an intravesical median lobe and a volume of 31g. He was unable to urinate following the procedure and a catheter was replaced. Discussed options moving forward to include chronic kyle catheter exchanges, CIC, SPT placement, the aforementioned medications or a bladder outlet procedure. He ultimately elected to move forward with an Aquablation procedure. Of note, he does not have a Cardiac history and does not regularly consume blood thinners or NSAID's. Surgeon: Jeffrey Frias Assisted?: No Anesthesia Type: General Operative Notes Findings: Coaptating lateral prostatic lobes, small intravesical median lobe Closure Type: not applicable Specimen(s): other (prostate chips) Applied: catheter Estimated Blood Loss (mL): 50 Blood products transfused: none Procedure in detail: After informed consent was obtained, the patient was identified brought to the operating room where he was placed in his supine position on the table.? Once there anesthesia was induced and maintained.? Ensuring an adequate level of anesthesia the patient was transitioned to the lithotomy position where after time-out he was prepped.? After prepping, ensuring an adequate level of anesthesia, administration IV antibiotics and time-out 60 cc of ultrasound gel was instilled within the rectum and the ultrasound probe which had been attached to the TRUS stepper which was attached to the TRUS stepper articulating arm which was secured to the bed was advanced into the rectum under direct vision via the ultrasound.? The ultrasound probe was then aligned and confirmation made that the prostate was centered and aligned in both the sagittal and transverse views.? The bladder neck, verumontanum, central and transitional zones were identified.? With the ultrasound in place and adjusted the patient was then draped in a sterile fashion. With the patient draped the 24 Portuguese aqua beam handpiece was then inserted through the urethra and advanced into the bladder.? Cystoscopy was then performed and no concerning bladder mass or lesions were noted.? Bilateral ureteral orifices were noted to be orthotopic in nature.? As the cystoscope was advanced the level of the sphincter, verumontanum, bladder neck were all identified via ultrasound and under direct vision.? The aqua beam hand place was then secured to the handpiece articulating arm which had been secured to the bed.? The Aquablation handpiece and TRUS probe were confirmed to be parallel and colinear.? Confirmation was then made that the aqua beam handpiece and nozzle was centered and anterior to the bladder neck.? The cystoscope was then retracted under direct vision in the sphincter and verumontanum were identified.? The tip of the cystoscope was then placed proximal to the external sphincter.? Compression was applied with the TRUS probe to the prostate.? The alignment of the TRUS probe and aqua beam handpiece was once again confirmed.? Horizontal alignment of the handpiece water jet was then performed.? With these adjustments made, the treatment zones were then planned using real-time ultrasound.? In the largest transverse view of the prostate the depth and radial angles were determined and set again in the transverse view of the prostate.? In the longitudinal and sagittal view the Aquablation nozzle was identified and its position registered with the software and robot.? The treatment contours were then determined and adjusted to reflect the intended margins of resection.? Following our plan confirmation, the Aquablation resection treatment was started.? A 2nd pass was then completed in similar fashion after the 1st pass had been completed.? At this point, the Aqua hand piece was removed from the urethra. The 26Fr resectoscope was then inserted into the urethra and cystoscopy was repeated.? The Elik tv technician was utilized to evacuate the blood clots from the bladder.? The bladder neck was then resected using the bipolar Gyrus loop.? Bilateral ureteral orifices were again identified and noted to be intact at case end.? Hemostasis was obtained and noted to be excellent at case end.? The resectoscope was then removed and a 24Fr Areli 3-way hematuria catheter was inserted through the urethra and into the bladder.? 45cc of sterile water was utilized for balloon insufflation.? Efflux was noted to be clear at case end.? Anesthesia was reversed, he was extubated in the OR and transferred to the PACU in stable condition for recovery. Complications: none Post-operative Condition: stable Disposition: PACU Plan for aftercare: Will continue to run CBI for a few hours to evaluate the efflux from his catheter.? Should it remain relatively clear and with minimal blood clots, will discharge home with catheter in place and have him return to Urology clinic in 2 days for a voiding trial.? Should his efflux remain red or have significant clot burden, will admit overnight for observation and continued CBI.
[2025-04-18 09:02] VITALS: BP 159/75; PULSE 76; RESP 17; TEMP 36.2; O2SAT 95
[2025-04-18 09:13] VITALS: BP 150/83; PULSE 76; RESP 19; TEMP 36.2; O2SAT 96
[2025-04-18 09:17] VITALS: BP 152/86; PULSE 80; RESP 19; TEMP 36.2; O2SAT 97
--- NOTE | 2025-04-18 10:48 | SUR.PHASEII ---
1030 - Traction released per order and Cath secure placed. at bedside. CBI cont's. Grade 1 in color.
--- NOTE | 2025-04-18 11:48 | SUR.PHASEII ---
CBI slowed slightly. grade [address] Frias's eval. No complaints voiced. PO fluid intake good. Pt denies pain or nausea.
[2025-04-18 13:25] VITALS: BP 152/78; PULSE 85; RESP 16; TEMP 36.4; O2SAT 96
== END 2025-04-18 13:25 | disposition home or self-care (01) ==
PROVIDERS: PCP Family Medicine; Referring Provider Urology; Visit Provider Urology
PROC: 0VT08ZZ Resection of Prostate, Via Natural or Artificial Opening Endoscopic (ICD-10-PCS; CPT 52597; principal; 2025-04-18 07:45)
DX: C61 Malignant neoplasm of prostate (principal); N40.1 Benign prostatic hyperplasia with lower urinary tract symptoms; N13.8 Other obstructive and reflux uropathy; R33.9 Retention of urine, unspecified
CPT/HCPCS: 0421T; 82962; C2596; J0689; J1100; J2405; J2704; J3010; J3490; J7120